=== PATIENT | male | born 1980 | race African-American/Black ===

== ENCOUNTER → 2016-04-10 | Outpatient (CLI) | payer MEDICARE, OTHER | END | disposition home or self-care (01) | LOC: LABWHC1 07:08 | PROVIDERS: ATTEND Nurse Practitioner Family | DX: Z51.81 Encounter for therapeutic drug level monitoring (principal); Z79.899 Other long term (current) drug therapy | CPT/HCPCS: 36415; 84146 ==

== ENCOUNTER → 2017-01-20 | Outpatient (CLI) | payer MEDICARE, OTHER ==
[2017-01-20 08:20] LABS: Basophils % (A) 1 %; CH 29.6; CHCM 33.4; Eosinophils # (A) 0.2 k/uL (0-0.7); Eosinophils % (A) 4 %; HCT 43.8 % (39.0-53.0); HDW 2.37; HGB 14.4 gm/dL (13.0-17.5); Luc # (Auto) 0.05; Luc % (Auto) 1; Lymphocytes # (A) 1.1 k/uL (1.0-4.8); Lymphocytes % (A) 20 %; MCH 29.3 pg (25.0-35.0); MCHC 32.9 g/dL (31.0-37.0); MCV 89.1 fL (80.0-100.0); Mean Platelet Volume 7.8; Monocytes # (A) 0.5 k/uL (0-1.0); Monocytes % (A) 9 %; Neutrophils # (A) 3.5 k/uL (1.3-7.7); Neutrophils % (A) 66 %; RBC 4.91 m/uL (4.30-5.90); RDW 13.2 % (11.5-15.5); WBC 5.4 k/uL (3.8-10.6); WBC (Perox) 5.01
[2017-01-20 08:32] LABS: ALT 44 U/L (21-72); AST 24 U/L (17-59); Alkaline Phosphatase 69 U/L (38-126); Anion Gap 9 mmol/L; Bilirubin, Delta 0.1 mg/dL (0.0-0.2); Blood Urea Nitrogen 17 mg/dL (9-20); Calcium 10.1 mg/dL (8.4-10.2); Carbon Dioxide 30 mmol/L (22-30); Chloride 105 mmol/L (98-107); Glucose 102 mg/dL (74-99); Non-African American GFR(MDRD) >60 (>60 ml/min/1.73 sqM); Potassium 4.2 mmol/L (3.5-5.1); Sodium 144 mmol/L (137-145); Total Bilirubin 0.7 mg/dL (0.2-1.3); Total Protein 7.2 g/dL (6.3-8.2)
== END | disposition home or self-care (01) ==
LOC: LABWHC1 07:54
PROVIDERS: ATTEND Nurse Practitioner Family
DX: Z51.81 Encounter for therapeutic drug level monitoring (principal); Z79.899 Other long term (current) drug therapy
CPT/HCPCS: 36415; 80048; 80076; 83036; 84146; 85025

== ENCOUNTER → 2017-07-21 | Outpatient (CLI) | payer MEDICARE, OTHER | END | disposition home or self-care (01) | LOC: LABWHC1 06:38 | PROVIDERS: ATTEND Nurse Practitioner Family | DX: Z51.81 Encounter for therapeutic drug level monitoring (principal); Z79.899 Other long term (current) drug therapy | CPT/HCPCS: 36415; 84146 ==

== ENCOUNTER → 2017-09-17 | Outpatient (CLI) | payer MEDICARE, OTHER | END | disposition home or self-care (01) | LOC: LABWHC1 07:55 | PROVIDERS: ATTEND Nurse Practitioner Family | DX: Z51.81 Encounter for therapeutic drug level monitoring (principal); Z79.899 Other long term (current) drug therapy | CPT/HCPCS: 36415; 84146 ==

== ENCOUNTER → 2017-12-02 | Outpatient (CLI) | payer MEDICARE, OTHER ==
[2017-12-02 07:38] LABS: Basophils % (A) 1 %; Eosinophils # (A) 0.3 k/uL (0-0.7); Eosinophils % (A) 5 %; HCT 43.8 % (39.0-53.0); HGB 14.9 gm/dL (13.0-17.5); Lymphocytes # (A) 1.4 k/uL (1.0-4.8); Lymphocytes % (A) 28 %; MCV 85.4 fL (80.0-100.0); Monocytes # (A) 0.4 k/uL (0-1.0); Monocytes % (A) 8 %; Neutrophils # (A) 2.9 k/uL (1.3-7.7); Neutrophils % (A) 57 %; Platelet Count 199 k/uL (150-450); RBC 5.12 m/uL (4.30-5.90); RDW 11.6 % (11.5-15.5); WBC 5.2 k/uL (3.8-10.6)
[2017-12-02 07:56] LABS: ALT 113 U/L (21-72); AST 48 U/L (17-59); Albumin 4.4 g/dL (3.5-5.0); Alkaline Phosphatase 76 U/L (38-126); Anion Gap 8 mmol/L; Bilirubin, Delta 0.3 mg/dL (0.0-0.2); Bilirubin,Unconjugated 0.9 mg/dL (0.0-1.1); Blood Urea Nitrogen 15 mg/dL (9-20); Calcium 9.9 mg/dL (8.4-10.2); Carbon Dioxide 30 mmol/L (22-30); Chloride 106 mmol/L (98-107); Glucose 80 mg/dL (74-99); Potassium 4.3 mmol/L (3.5-5.1); Sodium 144 mmol/L (137-145); Total Bilirubin 1.2 mg/dL (0.2-1.3); Total Protein 7.3 g/dL (6.3-8.2)
[2017-12-02 14:38] LABS: Hemoglobin A1C 4.5 % (4.0-6.0)
== END | disposition home or self-care (01) ==
LOC: LABWHC1 06:52
PROVIDERS: ATTEND Psychiatry & Neurology Psychiatry
DX: Z51.81 Encounter for therapeutic drug level monitoring (principal); Z79.899 Other long term (current) drug therapy
CPT/HCPCS: 36415; 80048; 80076; 83036; 84146; 85025

== ENCOUNTER → 2018-02-26 | Outpatient (CLI) | payer MEDICARE, OTHER | END | disposition home or self-care (01) | LOC: LABWHC1 11:11 | PROVIDERS: ATTEND Nurse Practitioner Family | DX: Z51.81 Encounter for therapeutic drug level monitoring (principal); Z79.899 Other long term (current) drug therapy | CPT/HCPCS: 36415; 84146 ==

== ENCOUNTER → 2018-03-22 | Outpatient (CLI) | payer MEDICARE, OTHER ==
--- NOTE | 2018-03-22 10:44 | XR ---
EXAMINATION TYPE: XR hand complete LT DATE OF EXAM: 03/22/2018 CLINICAL HISTORY: pain TECHNIQUE: Frontal, lateral and oblique images of the left hand are obtained. COMPARISON: None. FINDINGS: There is no acute fracture/dislocation evident. The joint spaces appear within normal limi ts. The overlying soft tissue appears unremarkable. IMPRESSION: There is no acute fracture or dislocation. ICD 10 NO FRACTURE, INITIAL EVALUATION
== END ==
LOC: RADXRMAIN 10:13
PROVIDERS: ATTEND Family Medicine
DX: M79.642 Pain in left hand (principal)

== ENCOUNTER → 2018-05-20 | Outpatient (CLI) | payer MEDICARE, OTHER ==
[2018-05-20 16:42] LABS: Albumin 4.9 g/dL (3.80-4.90); Albumin/Globulin Ratio 2.23 (1.60-3.17); Anion Gap 7.1 mmol/L (4.00-12.00); Calcium 10.2 mg/dL (8.7-10.3); Carbon Dioxide 29.9 mmol/L (21.6-31.8); Globulin 2.2 g/dL (1.6-3.3); Total Bilirubin 1.1 mg/dL (0.3-1.2); Total Protein 7.1 g/dL (6.2-8.2)
[2018-05-20 16:50] LABS: T4, Free (Free Thyroxine) 1.1 ng/dL (0.80-1.80)
== END | disposition home or self-care (01) ==
LOC: LABWHC1 08:57
PROVIDERS: ATTEND Family Medicine
DX: R63.4 Abnormal weight loss (principal)
CPT/HCPCS: 36415; 80053; 84439; 84443

== ENCOUNTER → 2018-06-01 | Outpatient (CLI) | payer MEDICARE, OTHER | END | disposition home or self-care (01) | LOC: LABWHC1 12:35 | PROVIDERS: ATTEND Physician Assistant | DX: Z51.81 Encounter for therapeutic drug level monitoring (principal); Z79.899 Other long term (current) drug therapy | CPT/HCPCS: 36415; 84146 ==

== ENCOUNTER → 2019-04-20 | Outpatient (CLI) | payer MEDICARE, OTHER ==
[2019-04-20 08:25] LABS: Basophils % (A) 0 %; Eosinophils # (A) 0.2 k/uL (0-0.7); Eosinophils % (A) 4 %; HCT 45.2 % (39.0-53.0); HGB 14.8 gm/dL (13.0-17.5); Lymphocytes # (A) 1.6 k/uL (1.0-4.8); Lymphocytes % (A) 27 %; MCH 28.3 pg (25.0-35.0); MCHC 32.7 g/dL (31.0-37.0); MCV 86.4 fL (80.0-100.0); Mean Platelet Volume 7.5; Monocytes # (A) 0.5 k/uL (0-1.0); Monocytes % (A) 8 %; Neutrophils # (A) 3.6 k/uL (1.3-7.7); Neutrophils % (A) 60 %; Platelet Count 184 k/uL (150-450); RBC 5.23 m/uL (4.30-5.90); RDW 11.6 % (11.5-15.5); WBC 6.1 k/uL (3.8-10.6)
[2019-04-20 12:03] LABS: Albumin 4.6 g/dL (3.80-4.90); Albumin/Globulin Ratio 2.42 (1.60-3.17); Bilirubin, Conjugated 0.5 mg/dL (0.20-0.40); Bilirubin,Unconjugated 0.7 mg/dL; Chol/HDL Ratio 2.83; Globulin 1.9 g/dL (1.6-3.3); Total Bilirubin 1.2 mg/dL (0.3-1.2); Total Protein 6.5 g/dL (6.2-8.2)
[2019-04-20 12:13] LABS: T4, Free (Free Thyroxine) 1.2 ng/dL (0.80-1.80)
[2019-04-20 13:08] LABS: Prolactin 64.2 ng/mL (2.1-17.7)
== END | disposition home or self-care (01) ==
LOC: LABWHC1 07:33
PROVIDERS: ATTEND Nurse Practitioner Family
DX: Z51.81 Encounter for therapeutic drug level monitoring (principal); Z79.899 Other long term (current) drug therapy
CPT/HCPCS: 36415; 80061; 80076; 82947; 84146; 84439; 84443; 85025

== ENCOUNTER → 2019-11-08 | Outpatient (CLI) | payer MEDICARE, OTHER ==
[2019-11-08 16:33] LABS: Chol/HDL Ratio 3.27; LDL Cholesterol,Calculated 85.6 mg/dL (0.0-131.0); VLDL Calculation 14.4 mg/dL (5.00-40.00)
[2019-11-08 18:22] LABS: Hemoglobin A1C 4.7 % (4.0-6.0)
== END | disposition home or self-care (01) ==
LOC: LABWHC1 08:01
PROVIDERS: ATTEND Nurse Practitioner Family
DX: Z51.81 Encounter for therapeutic drug level monitoring (principal); Z79.899 Other long term (current) drug therapy
CPT/HCPCS: 36415; 80061; 83036; 84146

== ENCOUNTER 2019-11-27 15:23 | Emergency (ER) | payer MEDICARE, OTHER ==
[2019-11-27 15:37] VITALS: BP 112/77; PULSE 90; RESP 18; TEMP 98.3
[2019-11-27] MEDS ORDERED: POLYMYXIN B-TRIMETHOPRIM SULF (10,000-1) OPHTH DROPS 10 ML BTL BOTH EYES STA (15:53)
--- NOTE | 2019-11-27 16:01 | ED ---
Eye Problem HPI - General Source: patient Mode of arrival: ambulatory Limitations: no limitations <Junior Rhodes - Last Filed: 11/27/19 16:03> <Kelsy Lopez - Last Filed: 11/28/19 14:36> - General Chief complaint: Eye Problems Stated complaint: poss pink eye Time Seen by Provider: 11/27/19 15:51 - History of Present Illness Initial comments: Patient is a 39-year-old male, nonverbal presenting with his caregiver to emergency department for a chief complaint of possible pinkeye. Caregiver states that noticed redness in his right eye along with some crusting specialist in the morning. She noticed patient continues to itch the eye. They say there is no one in the vicinity was diagnosed with pink eye. Caregiver denies any complaints of chills or fevers at home. She denies any swelling or erythema around the eye. (Junior Rhodes) - Related Data Previous Rx's Medication Instructions Recorded Polymyxin B-Trimeth Sulf Ophth 1 drops BOTH EYES Q4H #1 bottle 11/27/19 [Polytrim Opthalmic] Allergies Allergy/AdvReac Type Severity Reaction Status Date / Time No Known Allergies Allergy Verified 11/27/19 15:37 Review of Systems ROS Other: All systems not noted in ROS Statement are negative. <Junior Rhodes - Last Filed: 11/27/19 16:03> ROS Other: All systems not noted in ROS Statement are negative. <Kelsy Lopez - Last Filed: 11/28/19 14:36> ROS Statement: Those systems with pertinent positive or pertinent negative responses have been documented in the HPI. Past Medical History Additional Past Medical History / Comment(s): autism- non verbal, mental retardation History of Any Multi-Drug Resistant Organisms: None Reported Past Surgical History: Ear Surgery Past Psychological History: No Psychological Hx Reported Smoking Status: Never smoker Past Alcohol Use History: None Reported Past Drug Use History: None Reported <Junior Rhodes - Last Filed: 11/27/19 16:03> General Exam Limitations: no limitations General appearance: alert, in no apparent distress Head exam: Present: atraumatic, normocephalic, normal inspection Eye exam: Present: normal appearance, PERRL, EOMI, conjunctival injection (Right eye. Some yellow crusting noted) Pupils: Present: normal accommodation ENT exam: Present: normal exam, normal oropharynx, mucous membranes moist, TM's normal bilaterally, normal external ear exam Neck exam: Present: normal inspection, full ROM. Absent: tenderness Respiratory exam: Present: normal lung sounds bilaterally. Absent: respiratory distress, wheezes, rales Cardiovascular Exam: Present: regular rate, normal rhythm, normal heart sounds Extremities exam: Present: normal inspection, full ROM, normal capillary refill. Absent: tenderness Back exam: Present: normal inspection, full ROM. Absent: tenderness, CVA tenderness (R), CVA tenderness (L) Neurological exam: Present: alert, normal gait Psychiatric exam: Present: normal affect, normal mood Skin exam: Present: warm, dry, intact, normal color <Junior Rhodes - Last Filed: 11/27/19 16:03> Course <Junior Rhodes - Last Filed: 11/27/19 16:03> Vital Signs 11/27/19 15:32 Temperature 98.3 F Pulse Rate 90 Respiratory 18 Rate Blood Pressure 112/77 O2 Sat by Pulse 99 Oximetry - Reevaluation(s) Reevaluation #1: 11/27/19 16:05 Medical records reviewed (Junior Rhodes) Medical Decision Making <Junior Rhodes - Last Filed: 11/27/19 16:03> <Kelsy Lopez - Last Filed: 11/28/19 14:36> - Medical Decision Making Patient a 39-year-old male presenting to emergency Department with a chief complaint of possible pinkeye .physical examination, patient does appear to have conjunctivitis. Some crusting noted. Patient to be started on Polytrim. He does not wear contacts. Return parameters thoroughly discussed with caregiver who is understandable and agreeable. Case discussed with physician. (Junior Rhodes) I was available for consultation in the emergency department. The history and physical exam were done by the midlevel provider. I was consulted for this patients care. I reviewed the case with the midlevel provider and based on their presentation of the patient, I agree with the assessment, medical decision making and plan of care as documented. Chart was dictated using [employer] dictation software. Attempts were made to correct any dictation errors however some typographical errors may persist. Patient was seen during a national state of emergency due to the Covid-19 pandemic. (Kelsy Lopez) Disposition Is patient prescribed a controlled substance at d/c from ED?: No Time of Disposition: 16:01 <Junior Rhodes - Last Filed: 11/27/19 16:03> <Kelsy Lopez - Last Filed: 11/28/19 14:36> Clinical Impression: Conjunctivitis, right eye Disposition: HOME SELF-CARE Condition: Stable Instructions (If sedation given, give patient instructions): Conjunctivitis (ED) Additional Instructions: Take prescribed medication as directed. Follow up with the primary care physician. Return to emergency department if symptoms worsen. Prescriptions: Polymyxin B-Trimeth Sulf Ophth [Polytrim Opthalmic] 1 drops BOTH EYES Q4H #1 bottle Referrals: Rony Kendall MD [Primary Care Provider] - 1-2 days
== END 2019-11-27 16:12 | disposition home or self-care (01) ==
LOC: EEVIPCON 15:23 → EC 15:23
DX: H10.9 Unspecified conjunctivitis (principal)
CPT/HCPCS: 99282

== ENCOUNTER → 2020-07-25 | Outpatient (CLI) | payer MEDICARE, OTHER | END | disposition home or self-care (01) | LOC: LABWHC1 12:37 | PROVIDERS: ATTEND Nurse Practitioner Family | DX: Z79.899 Other long term (current) drug therapy (principal) | CPT/HCPCS: 36415; 84146 ==

== ENCOUNTER 2021-04-11 21:41 | Emergency (ER) | payer MEDICARE, OTHER ==
[2021-04-11 23:54] LABS: Basophils % (A) 1 %; Eosinophils # (A) 0.3 k/uL (0-0.7); Eosinophils % (A) 4 %; HCT 38.9 % (39.0-53.0); HGB 13.7 gm/dL (13.0-17.5); Lymphocytes # (A) 1.8 k/uL (1.0-4.8); Lymphocytes % (A) 25 %; MCH 29.9 pg (25.0-35.0); MCHC 35.2 g/dL (31.0-37.0); MCV 84.9 fL (80.0-100.0); Mean Platelet Volume 7.3; Monocytes # (A) 0.5 k/uL (0-1.0); Monocytes % (A) 8 %; Neutrophils # (A) 4.4 k/uL (1.3-7.7); Neutrophils % (A) 61 %; Platelet Count 244 k/uL (150-450); RBC 4.58 m/uL (4.30-5.90); RDW 11.8 % (11.5-15.5); WBC 7.1 k/uL (3.8-10.6)
[2021-04-12 00:06] LABS: African American GFR (CKD) >90 (>60 ml/min/1.73 sqM); Alcohol <10 mg/dL; Anion Gap 8 mmol/L; Blood Urea Nitrogen 13 mg/dL (9-20); Calcium 9.6 mg/dL (8.4-10.2); Carbon Dioxide 21 mmol/L (22-30); Chloride 109 mmol/L (98-107); Glucose 109 mg/dL (74-99); Non-African American GFR(CKD) >90 (>60 ml/min/1.73 sqM); Sodium 138 mmol/L (137-145)
[2021-04-12 01:36] LABS: Appearance,Urine Clear (Clear); Bilirubin,Urine Negative (Negative); Blood,Urine Negative (Negative); Color,Urine Light Yellow; Glucose,Urine (UA) Negative (Negative); Ketones,Urine Negative (Negative); Leukocyte Esterase,Urine Negative (Negative); Nitrite,Urine Negative (Negative); Protein,Urine Negative (Negative); Specific Gravity,Urine 1.011 (1.001-1.035); Urobilinogen,Urine <2.0 mg/dL (<2.0)
[2021-04-12 01:47] LABS: Amphetamine Screen,Urine Not Detected (NotDetected); Barbiturate Screen,Urine Not Detected (NotDetected); Benzodiazepines Screen,Urine Not Detected (NotDetected); Cocaine Screen,Urine Not Detected (NotDetected); Methadone Screen, Urine Not Detected (NotDetected); Opiate Screen,Urine Not Detected (NotDetected); Oxycodone Screen, Urine Not Detected (NotDetected); Phencyclidine Screen,Urine Not Detected (NotDetected); Tricyclic Antidepressant,Urine Not Detected (NotDetected); Urn Cannabinoid Scrn Not Detected (NotDetected)
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
[2021-04-12 04:31] VITALS: BP 127/77; PULSE 77; RESP 20; TEMP 97.7
== END 2021-04-12 04:31 | disposition home or self-care (01) ==
LOC: EC 21:41
DX: R45.6 Violent behavior (principal); F84.0 Autistic disorder
CPT/HCPCS: 99284; 36415; 80048; 85025; 81003; 80306; G0480; 80320

== ENCOUNTER 2021-05-02 16:47 | Emergency (ER) | payer MEDICARE, OTHER ==
[2021-05-02 17:19] VITALS: RESP 16; TEMP 98.4
--- NOTE | 2021-05-02 19:31 | ED ---
General Adult HPI - General Source: patient, RN notes reviewed, old records reviewed Mode of arrival: ambulatory Limitations: no limitations <Sherman Thibodeaux - Last Filed: 05/02/21 20:44> <Adalberto Galloway - Last Filed: 05/03/21 10:05> <Janel Valentin - Last Filed: 05/03/21 16:59> - General Chief complaint: Psychiatric Symptoms Stated complaint: Mental health Time Seen by Provider: 05/02/21 17:37 - History of Present Illness Initial comments: 41-year-old male history of autism resulting for evaluation of aggression and request for psychiatric evaluation. Patient is nonverbal and unable to contribute to the history. He takes clonazepam once daily to this about 2 hours prior to arrival today. He is calm and cooperative time my evaluation. He is accompanied by his caregiver and his mother. (Sherman Thibodeaux) - Related Data Home Medications Medication Instructions Recorded Confirmed Asenapine Maleate [Saphris] 2.5 mg SUBLINGUAL DAILY PRN 05/02/21 05/02/21 Cefuroxime Axetil [Ceftin] 500 mg PO BID@0800,199905/02/21 05/02/21 Cetirizine HCl 10 mg PO DAILY@0800 05/02/21 05/02/21 Clindamycin 1% Lotion 1 applic TOPICAL BID PRN 05/02/21 05/02/21 Fluocinonide/Emollient Base 1 applic TOPICAL BID PRN 05/02/21 05/02/21 [Fluocinonide-E 0.05% Cream] Fluticasone Nasal Cade [Flonase 1 spray EA NOSTRIL BID@0800,199905/02/21 05/02/21 Nasal Cade] Mirtazapine [Remeron] 30 mg PO HS@199905/02/21 05/02/21 Vitamin B Complex/Melly C 1 tab PO DAILY@0800 05/02/21 05/02/21 cloNIDine HCL 0.3 mg PO HS@199905/02/21 05/02/21 clonazePAM [KlonoPIN] 1 mg PO DAILY@1600 05/02/21 05/02/21 risperiDONE [RisperDAL] 4 mg PO BID@0800,199905/02/21 05/02/21 Allergies Allergy/AdvReac Type Severity Reaction Status Date / Time No Known Allergies Allergy Verified 05/02/21 19:55 Review of Systems ROS Other: All systems not noted in ROS Statement are negative. <Sherman Thibodeaux - Last Filed: 05/02/21 20:44> ROS Other: All systems not noted in ROS Statement are negative. <Adalberto Galloway - Last Filed: 05/03/21 10:05> ROS Other: All systems not noted in ROS Statement are negative. <Janel Valentin - Last Filed: 05/03/21 16:59> ROS Statement: Those systems with pertinent positive or pertinent negative responses have been documented in the HPI. Past Medical History Additional Past Medical History / Comment(s): autism- non verbal, mental retardation History of Any Multi-Drug Resistant Organisms: None Reported Past Surgical History: Ear Surgery Past Psychological History: No Psychological Hx Reported Smoking Status: Never smoker Past Alcohol Use History: None Reported Past Drug Use History: None Reported <Sherman Thibodeaux - Last Filed: 05/02/21 20:44> General Exam Limitations: no limitations General appearance: alert, in no apparent distress Head exam: Present: atraumatic, normocephalic Eye exam: Present: normal appearance, PERRL ENT exam: Present: normal exam Neck exam: Present: normal inspection. Absent: tenderness, meningismus Respiratory exam: Present: normal lung sounds bilaterally. Absent: respiratory distress, wheezes Cardiovascular Exam: Present: regular rate, normal rhythm GI/Abdominal exam: Present: soft. Absent: distended, tenderness Extremities exam: Present: normal inspection, normal capillary refill Neurological exam: Present: alert. Absent: motor sensory deficit Psychiatric exam: Present: agitated Skin exam: Present: warm, dry, intact. Absent: cyanosis, diaphoretic <Sherman Thibodeaux - Last Filed: 05/02/21 20:44> Course <Sherman Thibodeaux - Last Filed: 05/02/21 20:44> Vital Signs 05/02/21 05/03/21 17:15 05:14 Temperature 98.4 F Pulse Rate 98 87 Respiratory 16 16 Rate Blood Pressure 125/85 140/87 O2 Sat by Pulse 96 98 Oximetry - Reevaluation(s) Reevaluation #1: 05/02/21 2100 Patient care signed out to Dr. Kolb at shift change. Awaiting EPS evaluation and disposition. (Sherman Thibodeaux) Medical Decision Making - Lab Data Result diagrams: 05/03/21 00:17 05/03/21 00:17 <Adalberto Galloway - Last Filed: 05/03/21 10:05> - Lab Data Result diagrams: 05/03/21 00:17 05/03/21 00:17 <Janel Valentin - Last Filed: 05/03/21 16:59> - Medical Decision Making Patient was seen by EM who coordinated care with [facility] ([facility]) and patient's alf, they added Depakot ER to the patient's medication regimen and determined that the patient was stable for discharged back to alf. Patient's mother was notified and agreeable with medication change and plan for discharge. (Janel Valentin) - Lab Data Lab Results 05/02/21 05/03/21 05/03/21 Range/Units 18:21 00:17 00:17 WBC 6.5 (3.8-10.6) k/uL RBC 4.94 (4.30-5.90) m/uL Hgb 14.6 (13.0-17.5) gm/dL Hct 42.5 (39.0-53.0) % MCV 86.1 (80.0-100.0) fL MCH 29.6 (25.0-35.0) pg MCHC 34.3 (31.0-37.0) g/dL RDW 12.2 (11.5-15.5) % Plt Count 196 (150-450) k/uL MPV 7.3 Neutrophils % 54 % Lymphocytes % 31 % Monocytes % 8 % Eosinophils % 4 % Basophils % 1 % Neutrophils # 3.5 (1.3-7.7) k/uL Lymphocytes # 2.0 (1.0-4.8) k/uL Monocytes # 0.5 (0-1.0) k/uL Eosinophils # 0.2 (0-0.7) k/uL Basophils # 0.1 (0-0.2) k/uL Sodium 139 (137-145) mmol/L Potassium 3.7 (3.5-5.1) mmol/L Chloride 107 (98-107) mmol/L Carbon Dioxide 21 L (22-30) mmol/L Anion Gap 11 mmol/L BUN 15 (9-20) mg/dL Creatinine 0.89 (0.66-1.25) mg/dL Est GFR (CKD-EPI)AfAm >90 (>60 ml/min/1.73 sqM) Est GFR (CKD-EPI)NonAf >90 (>60 ml/min/1.73 sqM) Glucose 131 H (74-99) mg/dL Calcium 9.5 (8.4-10.2) mg/dL Total Bilirubin 0.7 (0.2-1.3) mg/dL AST 38 (17-59) U/L ALT 56 H (4-49) U/L Alkaline Phosphatase 97 (38-126) U/L Total Protein 7.6 (6.3-8.2) g/dL Albumin 4.6 (3.5-5.0) g/dL Serum Alcohol <10 mg/dL Coronavirus (PCR) (Not Detectd) 05/03/21 Range/Units 06:04 WBC (3.8-10.6) k/uL RBC (4.30-5.90) m/uL Hgb (13.0-17.5) gm/dL Hct (39.0-53.0) % MCV (80.0-100.0) fL MCH (25.0-35.0) pg MCHC (31.0-37.0) g/dL RDW (11.5-15.5) % Plt Count (150-450) k/uL MPV Neutrophils % % Lymphocytes % % Monocytes % % Eosinophils % % Basophils % % Neutrophils # (1.3-7.7) k/uL Lymphocytes # (1.0-4.8) k/uL Monocytes # (0-1.0) k/uL Eosinophils # (0-0.7) k/uL Basophils # (0-0.2) k/uL Sodium (137-145) mmol/L Potassium (3.5-5.1) mmol/L Chloride (98-107) mmol/L Carbon Dioxide (22-30) mmol/L Anion Gap mmol/L BUN (9-20) mg/dL Creatinine (0.66-1.25) mg/dL Est GFR (CKD-EPI)AfAm (>60 ml/min/1.73 sqM) Est GFR (CKD-EPI)NonAf (>60 ml/min/1.73 sqM) Glucose (74-99) mg/dL Calcium (8.4-10.2) mg/dL Total Bilirubin (0.2-1.3) mg/dL AST (17-59) U/L ALT (4-49) U/L Alkaline Phosphatase (38-126) U/L Total Protein (6.3-8.2) g/dL Albumin (3.5-5.0) g/dL Serum Alcohol mg/dL Coronavirus (PCR) Not Detected (Not Detectd) Disposition <Sherman Thibodeaux - Last Filed: 05/02/21 20:44> <Adalberto Galloway - Last Filed: 05/03/21 10:05> Is patient prescribed a controlled substance at d/c from ED?: No <Janel Valentin - Last Filed: 05/03/21 16:59> Clinical Impression: Encounter for psychiatric assessment Disposition: HOME SELF-CARE Condition: Stable Referrals: Rony Kendall MD [Primary Care Provider] - 1-2 days
[2021-05-02] MEDS ORDERED: clonazePAM 0.5 MG TAB PO PRN (22:44)
[2021-05-02] MEDS ORDERED: MIRTAZAPINE 15 MG TAB PO SCH (23:32)
[2021-05-02] MEDS ORDERED: cloNIDine HCL 0.1 MG TAB PO SCH (23:32)
[2021-05-02] MEDS: risperiDONE 1 MG TAB PO SCH (23:57)
[2021-05-03 00:30] LABS: Basophils # (A) 0.1 k/uL (0-0.2); Basophils % (A) 1 %; Eosinophils # (A) 0.2 k/uL (0-0.7); Eosinophils % (A) 4 %; HCT 42.5 % (39.0-53.0); HGB 14.6 gm/dL (13.0-17.5); Lymphocytes % (A) 31 %; MCH 29.6 pg (25.0-35.0); MCHC 34.3 g/dL (31.0-37.0); MCV 86.1 fL (80.0-100.0); Mean Platelet Volume 7.3; Monocytes # (A) 0.5 k/uL (0-1.0); Monocytes % (A) 8 %; Neutrophils # (A) 3.5 k/uL (1.3-7.7); Neutrophils % (A) 54 %; Platelet Count 196 k/uL (150-450); RBC 4.94 m/uL (4.30-5.90); RDW 12.2 % (11.5-15.5); WBC 6.5 k/uL (3.8-10.6)
[2021-05-03] MEDS ORDERED: LORazepam 1 MG TAB PO STA (00:32)
[2021-05-03 00:49] LABS: ALT 56 U/L (4-49); AST 38 U/L (17-59); African American GFR (CKD) >90 (>60 ml/min/1.73 sqM); Albumin 4.6 g/dL (3.5-5.0); Alkaline Phosphatase 97 U/L (38-126); Anion Gap 11 mmol/L; Blood Urea Nitrogen 15 mg/dL (9-20); Calcium 9.5 mg/dL (8.4-10.2); Carbon Dioxide 21 mmol/L (22-30); Chloride 107 mmol/L (98-107); Glucose 131 mg/dL (74-99); Non-African American GFR(CKD) >90 (>60 ml/min/1.73 sqM); Potassium 3.7 mmol/L (3.5-5.1); Sodium 139 mmol/L (137-145); Total Bilirubin 0.7 mg/dL (0.2-1.3); Total Protein 7.6 g/dL (6.3-8.2)
[2021-05-03] MEDS ORDERED: ZIPRASIDONE 20 MG CAP PO STA (04:53)
[2021-05-03 05:15] VITALS: BP 140/87; PULSE 87
[2021-05-03] MEDS ORDERED: RISPERIDONE 4 MG PO SCH (08:00)
[2021-05-03] MEDS: risperiDONE 1 MG TAB PO SCH (08:34)
[2021-05-03] MEDS ORDERED: ASENAPINE 5 MG TAB SUBLINGUAL SCH (09:00)
[2021-05-03] MEDS ORDERED: clonazePAM 1 MG TAB PO SCH (09:00)
[2021-05-03] MEDS ORDERED: ASENAPINE 5 MG TAB SUBLINGUAL PRN (13:48)
[2021-05-03] MEDS ORDERED: clonazePAM 1 MG TAB PO PRN (13:48)
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
[2021-05-03] MEDS ORDERED: MIRTAZAPINE 30 MG PO SCH (20:00)
[2021-05-03] MEDS ORDERED: cloNIDine HCL 0.1 MG TAB PO SCH (20:00)
[2021-05-03] MEDS ORDERED: DIVALPROEX ER 500 MG TAB.ER.24H PO SCH (21:00)
== END 2021-05-03 19:35 | disposition home or self-care (01) ==
LOC: EC 16:47
DX: Z13.39 Encounter for screening examination for other mental health and behavioral disorders (principal); Z20.822 Contact with and (suspected) exposure to COVID-19
CPT/HCPCS: 36415; 80053; 85025; 87635; 99284; G0480; 80320

== ENCOUNTER 2021-10-30 07:07 | Emergency (ER) | payer MEDICARE, OTHER ==
[2021-10-30 07:30] VITALS: BP 133/81; PULSE 100; RESP 20; TEMP 98.6
--- NOTE | 2021-10-30 07:42 | ED ---
Psych HPI - General Chief Complaint: Psychiatric Symptoms Stated Complaint: Mental Health Time Seen by Provider: 10/30/21 07:10 Source: patient, police, RN notes reviewed, old records reviewed Mode of arrival: ambulatory Limitations: language barrier - History of Present Illness Initial Comments: This a 41-year-old male brought to emergency department by police from [facility] home for psychiatric evaluation. Patient is autistic, nonverbal and reportedly had some aggression towards staff. Patient is petition brought in by police information is very limited as patient is nonverbal prior records were reviewed did show patient has been in another by psychiatric services in the past. No reports of self harming no reports of any physical complaints. - Related Data Home Medications Medication Instructions Recorded Confirmed Asenapine Maleate [Saphris] 2.5 mg SUBLINGUAL DAILY 05/02/21 10/30/21 Cetirizine HCl 10 mg PO DAILY@0800 05/02/21 10/30/21 Clindamycin 1% Lotion 1 applic TOPICAL BID PRN 05/02/21 10/30/21 Fluocinonide/Emollient Base 1 applic TOPICAL BID PRN 05/02/21 10/30/21 [Fluocinonide-E 0.05% Cream] Fluticasone Nasal Raymond [Flonase 1 spray EA NOSTRIL BID 05/02/21 10/30/21 Nasal Raymond] Mirtazapine [Remeron] 30 mg PO HS 05/02/21 10/30/21 cefUROXime axetiL [Ceftin] 500 mg PO BID 05/02/21 10/30/21 Asenapine Maleate [Saphris] 2.5 mg SUBLINGUAL BID PRN 10/30/21 10/30/21 Asenapine [Saphris] 5 mg SUBLINGUAL BID 10/30/21 10/30/21 Vitamin B Complex 1 cap PO DAILY 10/30/21 10/30/21 cloNIDine HCL [Kapvay] 0.3 mg PO HS 10/30/21 10/30/21 risperiDONE [RisperDAL] 3 mg PO BID 10/30/21 10/30/21 Allergies Allergy/AdvReac Type Severity Reaction Status Date / Time No Known Allergies Allergy Verified 10/30/21 08:39 Review of Systems ROS Statement: Those systems with pertinent positive or pertinent negative responses have been documented in the HPI. ROS Other: All systems not noted in ROS Statement are negative. Past Medical History Additional Past Medical History / Comment(s): autism- non verbal, mental retardation History of Any Multi-Drug Resistant Organisms: None Reported Past Surgical History: Ear Surgery Past Psychological History: No Psychological Hx Reported Smoking Status: Never smoker Past Alcohol Use History: None Reported Past Drug Use History: None Reported General Exam Limitations: language barrier General appearance: alert, in no apparent distress Head exam: Present: atraumatic, normocephalic, normal inspection Eye exam: Present: normal appearance, PERRL, EOMI. Absent: scleral icterus, conjunctival injection, periorbital swelling Respiratory exam: Present: normal lung sounds bilaterally. Absent: respiratory distress, wheezes, rales, rhonchi, stridor Cardiovascular Exam: Present: regular rate, normal rhythm, normal heart sounds. Absent: systolic murmur, diastolic murmur, rubs, gallop, clicks Neurological exam: Present: alert Skin exam: Present: warm, dry, intact, normal color. Absent: rash Course Vital Signs 10/30/21 07:27 Temperature 98.6 F Pulse Rate 100 Respiratory 20 Rate Blood Pressure 133/81 O2 Sat by Pulse 98 Oximetry Medical Decision Making - Medical Decision Making 41-year-old male presented for psychiatric evaluation. Patient was EPS case psychiatrist recommends patient be discharged patient's been: Cooperative. prison was contacted by [facility]. Return parameters were discussed. Disposition Clinical Impression: Autism, Aggressive outburst Disposition: HOME SELF-CARE Condition: Stable Additional Instructions: Please return to the Emergency Department if symptoms worsen or any other concerns. Is patient prescribed a controlled substance at d/c from ED?: No Referrals: None,Stated [Primary Care Provider] - 1-2 days Time of Disposition: 12:45
== END 2021-10-30 16:54 | disposition home or self-care (01) ==
LOC: EC 07:07
DX: F84.0 Autistic disorder (principal); R45.6 Violent behavior
CPT/HCPCS: 82075; 99283

== ENCOUNTER 2023-03-14 10:15 | Inpatient (IN) | payer MEDICARE, OTHER ==
[2023-03-14] MEDS ORDERED: SODIUM CHLORIDE 0.9% 1,000 ML IV STA (10:25)
[2023-03-14] MEDS ORDERED: IBUPROFEN 600 MG TAB PO STA (10:28)
--- NOTE | 2023-03-14 11:50 | XR ---
EXAMINATION TYPE: XR chest 2V DATE OF EXAM: 03/14/2023 COMPARISON: 04/09/2022 INDICATION: Cough, pain TECHNIQUE: Frontal and lateral views of the chest are obtained. FINDINGS: The heart size is normal. The pulmonary vasculature is normal. Some minimal increased lung markings are at the left base. Correlate for subsegmental atelectasis. De veloping pneumonia could be considered. IMPRESSION: 1. Mild left lower lobe infiltrate. Correlate for atelectasis or developing pneumonia
[2023-03-14 11:57] LABS: ALT 39 U/L (4-49); AST 39 U/L (17-59); African American GFR (CKD) >90 (>60 ml/min/1.73 sqM); Albumin 4.3 g/dL (3.5-5.0); Alkaline Phosphatase 80 U/L (38-126); Anion Gap 14 mmol/L; Blood Urea Nitrogen 23 mg/dL (9-20); Calcium 9.1 mg/dL (8.4-10.2); Carbon Dioxide 29 mmol/L (22-30); Chloride 99 mmol/L (98-107); Glucose 106 mg/dL (74-99); Non-African American GFR(CKD) 79 (>60 ml/min/1.73 sqM); Sodium 142 mmol/L (137-145); Total Bilirubin 0.8 mg/dL (0.2-1.3); Total Protein 7.5 g/dL (6.3-8.2)
[2023-03-14 11:58] LABS: HCT 42.9 % (39.0-53.0); HGB 14.9 gm/dL (13.0-17.5); MCH 30.3 pg (25.0-35.0); MCHC 34.8 g/dL (31.0-37.0); MCV 87.1 fL (80.0-100.0); Mean Platelet Volume 8.1; Platelet Count 141 k/uL (150-450); RBC 4.92 m/uL (4.30-5.90); RDW 11.9 % (11.5-15.5)
[2023-03-14 12:57] LABS: Band Neutrophils % 11 %; Lymphocytes # (M) 0.64 k/uL (1.0-4.8); Monocytes # (M) 0.48 k/uL (0-1.0); Neutrophils % (M) 75 %; Nucleated Red Blood Cells 0 /100 WBC (0-0); Total Cells Counted 100
[2023-03-14 12:58] LABS: RBC Morphology Normal
[2023-03-14] MEDS ORDERED: IPRATROPIUM-ALBUTEROL 3 ML NEB INHALATION PRN (13:02)
[2023-03-14] MEDS ORDERED: AZITHROMYCIN 500 MG in SODIUM CHLORIDE 0.9% 250 ML IVPB STA (13:02)
[2023-03-14] MEDS ORDERED: PNEUMONIA PROTOCOL UTILIZED 1 EACH MISC PO PRN (13:02)
--- NOTE | 2023-03-14 13:20 | ED ---
Fever HPI - General Chief Complaint: Fever Stated Complaint: FEVER Time Seen by Provider: 03/14/23 10:20 Source: EMS Mode of arrival: EMS Limitations: altered mental status - History of Present Illness Initial Comments: 43-year-old male with past medical history of autism, mostly nonverbal who presents to the emergency department with his svp group director. She states that the patient has been sick for the past 3 days. They have been in touch with her primary care doctor who placed him on Levaquin last night. He has not been seen in person. She reports that he has had a fever, nonproductive cough. He has had a decreased appetite and increased weakness. She states that he has not been urinating well and had no output yesterday. The patient has no underlying history of asthma or COPD. Oxygenation at home has been 88%. Denies any sick contacts. He was given Tylenol at 9:30 this morning. No other alleviating, precipitating or modifying factors - Related Data Home Medications Medication Instructions Recorded Confirmed Cetirizine HCl 10 mg PO DAILY@0800 05/02/21 03/14/23 Clindamycin 1% Lotion 1 applic TOPICAL BID PRN 05/02/21 03/14/23 Fluocinonide/Emollient Base 1 applic TOPICAL BID PRN 05/02/21 03/14/23 [Fluocinonide-E 0.05% Cream] Fluticasone Nasal [place] [Flonase 1 spray EA NOSTRIL BID@0800,209905/02/21 03/14/23 Nasal [place]] Dimethic/Zinc Ox/Vits A,D/Aloe [A 1 applic TOPICAL BID@0800,209903/14/23 03/14/23 and D Diaper Rash Cream] Divalproex ER [Depakote ER] 1,000 mg PO HS@209903/14/23 03/14/23 Famotidine 40 mg PO BID@0800,209903/14/23 03/14/23 LORazepam 2 mg PO HS@209903/14/23 03/14/23 Vitamin B Complex + Vitamin C 1 tab PO DAILY@0800 03/14/23 03/14/23 cloZAPine [Clozaril] 400 mg PO DAILY@1600 03/14/23 03/14/23 Previous Rx's Medication Instructions Recorded Oseltamivir [Tamiflu] 75 mg PO Q12HR 3 Days #6 cap 03/18/23 cefUROXime axetiL [Ceftin] 500 mg PO BID@0800,2100 3 Days #6 03/18/23 tab Allergies Allergy/AdvReac Type Severity Reaction Status Date / Time No Known Allergies Allergy Verified 03/14/23 14:01 Review of Systems ROS Statement: Those systems with pertinent positive or pertinent negative responses have been documented in the HPI. ROS Other: All systems not noted in ROS Statement are negative. Past Medical History Additional Past Medical History / Comment(s): autism- non verbal, mental retardation History of Any Multi-Drug Resistant Organisms: None Reported Past Surgical History: Ear Surgery Past Psychological History: No Psychological Hx Reported Smoking Status: Never smoker Past Alcohol Use History: None Reported Past Drug Use History: None Reported General Exam Limitations: altered mental status General appearance: alert, in no apparent distress Head exam: Present: atraumatic, normocephalic, normal inspection Eye exam: Present: normal appearance, PERRL, EOMI. Absent: scleral icterus, conjunctival injection, periorbital swelling ENT exam: Present: normal exam, mucous membranes moist Neck exam: Present: normal inspection. Absent: tenderness, meningismus, lymphadenopathy Respiratory exam: Present: wheezes, rales (rll). Absent: respiratory distress, rhonchi, stridor Cardiovascular Exam: Present: normal rhythm, tachycardia, normal heart sounds. Absent: systolic murmur, diastolic murmur, rubs, gallop, clicks GI/Abdominal exam: Present: soft, normal bowel sounds. Absent: distended, tenderness, guarding, rebound, rigid Extremities exam: Present: normal inspection, full ROM, normal capillary refill. Absent: tenderness, pedal edema, joint swelling, calf tenderness Back exam: Present: normal inspection Neurological exam: Present: alert, altered, CN II-XII intact Psychiatric exam: Present: normal affect, normal mood Skin exam: Present: warm, dry, intact, normal color. Absent: rash Course Vital Signs 03/14/23 03/14/23 03/14/23 10:19 11:29 13:01 Temperature 100.9 F H 99.7 F H Pulse Rate 121 H 117 H Respiratory 18 14 Rate Blood Pressure 134/90 119/76 O2 Sat by Pulse 92 L 89 L 91 L Oximetry 03/14/23 03/14/23 03/14/23 14:22 14:30 19:29 Temperature Pulse Rate 115 H 117 H 108 H Respiratory 16 Rate Blood Pressure 124/83 O2 Sat by Pulse 100 Oximetry 03/14/23 03/14/23 03/14/23 20:39 20:50 21:58 Temperature 99.0 F Pulse Rate 110 H 112 H 117 H Respiratory 18 Rate Blood Pressure 133/96 O2 Sat by Pulse 96 Oximetry 03/15/23 03/15/23 03/15/23 00:00 02:25 03:40 Temperature 100.5 F H 98.5 F Pulse Rate 109 H 108 H 101 H Respiratory 18 16 18 Rate Blood Pressure 137/84 129/90 132/92 O2 Sat by Pulse 96 95 96 Oximetry 03/15/23 03/15/23 03/15/23 05:56 08:45 08:59 Temperature 100.7 F H 99.4 F Pulse Rate 104 H 105 H 102 H Respiratory 16 18 Rate Blood Pressure 120/79 120/96 O2 Sat by Pulse 96 96 97 Oximetry 03/15/23 03/15/23 03/15/23 09:06 11:00 12:13 Temperature Pulse Rate 102 H 102 H 102 H Respiratory 18 Rate Blood Pressure 134/90 O2 Sat by Pulse 98 Oximetry 03/15/23 03/15/23 03/15/23 12:20 13:00 16:46 Temperature Pulse Rate 102 H 108 H 101 H Respiratory 18 Rate Blood Pressure 121/70 O2 Sat by Pulse 96 Oximetry 03/15/23 03/15/23 03/15/23 17:00 17:01 19:00 Temperature 100.2 F H Pulse Rate 107 H 102 H 107 H Respiratory 18 18 Rate Blood Pressure 124/82 118/87 O2 Sat by Pulse 98 95 Oximetry 03/15/23 03/15/23 03/15/23 19:55 20:00 21:05 Temperature 99.8 F H Pulse Rate 107 H 105 H Respiratory 23 Rate Blood Pressure 118/87 O2 Sat by Pulse Oximetry 03/15/23 03/16/23 03/16/23 21:14 00:00 01:14 Temperature Pulse Rate 108 H 103 H Respiratory 18 18 Rate Blood Pressure 105/69 O2 Sat by Pulse 98 Oximetry 03/16/23 03/16/23 03/16/23 01:33 03:00 05:00 Temperature Pulse Rate 98 103 H 101 H Respiratory 15 18 16 Rate Blood Pressure 101/72 100/65 99/62 O2 Sat by Pulse 97 97 Oximetry Medical Decision Making - Medical Decision Making Was pt. sent in by a medical professional or institution ([facility]STY Hoskins, ARMATURE REWINDER, urgent care, hospital, or care home...) When possible be specific @ -shelter Did you speak to anyone other than the patient for history (EMS, parent, family, police, friend...)? What history was obtained from this source @ -svp group director Did you review nursing and triage notes (agree or disagree)? Why? @ -I reviewed and agree with nursing and triage notes Were old charts reviewed (outside hosp., previous admission, EMS record, old EKG, old radiological studies, urgent care reports/EKG's, care home records)? Report findings @ -No old charts were reviewed Differential Diagnosis (chest pain, altered mental status, abdominal pain women, abdominal pain men, vaginal bleeding, weakness, fever, dyspnea, syncope, headache, dizziness, GI bleed, back pain, seizure, CVA, palpatations, mental health, musculoskeletal)? @ -Differential Dyspnea: Coronary syndrome, arrhythmia, tamponade, asthma, COPD, pulmonary embolism, pneumonia, pneumothorax, pulmonary effusion, anaphylaxis, diabetic ketoacidosis, flailed chest, pulmonary contusion, diaphragmatic rupture, anemia, neuromuscular, this is not meant to be an all-inclusive list. EKG interpreted by me (3pts min.). @ -Yes and demonstrates sinus tachycardia with a rate of 120. WI interval 120. QRS 96. QTC of 372. No acute ST segment elevations or depressions X-rays interpreted by me (1pt min.). @ -yes, demonstrates pneumonia CT interpreted by me (1pt min.). @ -None done U/S interpreted by me (1pt. min.). @ -None done What testing was considered but not performed or refused? (CT, X-rays, U/S, labs)? Why? @ -None What meds were considered but not given or refused? Why? @ -None Did you discuss the management of the patient with other professionals (professionals i.e. CHRISTY Hoskins, ARMATURE REWINDER, lab, RT, psych nurse, social work administrator, machine bobbin winder, teacher, sanitation officer, sample case porter)? Give summary @ -DR. schultz for admission Was smoking cessation discussed for >3mins.? @ -No Was critical care preformed (if so, how long)? @ -No Were there social determinants of health that impacted care today? How? (Homelessness, low income, unemployed, alcoholism, drug addiction, transportation, low edu. Level, literacy, decrease access to med. care, fci, rehab)? @ -lives in shelter Was there de-escalation of care discussed even if they declined (Discuss DNR or withdrawal of care, Hospice)? DNR status @ -No What co-morbidities impacted this encounter? (DM, HTN, Smoking, COPD, CAD, Cancer, CVA, ARF, Chemo, Hep., AIDS, mental health diagnosis, sleep apnea, morbid obesity)? @ -autism Was patient admitted / discharged? Hospital course, mention meds given and route, prescriptions, significant lab abnormalities, going to OR and other pertinent info. @Upon arrival patient was placed into room 3. A thorough history and physical exam was performed. Patient is maintaining oxygen saturation saturations of 88- 91% without oxygen. IV was established and laboratory studies were conducted. Patient is positive for influenza. Chest x-ray demonstrates a developing pneumonia. Due to his hypoxia, tachycardia with influenza and pneumonia I did recommend admission. Mother was agreeable to this who is his guardian. I spoke with Dr. schultz for admission. Patient is started on Rocephin, azithromycin and Tamiflu Undiagnosed new problem with uncertain prognosis? @ -yes Drug Therapy requiring intensive monitoring for toxicity (Heparin, Nitro, Insulin, Cardizem)? @ -No Were any procedures done? @ -No Diagnosis/symptom? @ -acute tachycardia, acute hypoxic resp failure, influenza a, pneumonia Acute, or Chronic, or Acute on Chronic? @ -acute Uncomplicated (without systemic symptoms) or Complicated (systemic symptoms)? @ -complicated Side effects of treatment? @ -No Exacerbation, Progression, or Severe Exacerbation? @ -No Poses a threat to life or bodily function? How? (Chest pain, [place], [place], pneumonia, PE, COPD, DKA, ARF, appy, cholecystitis, CVA, Diverticulitis, Homicidal, Suicidal, threat to staff... and all critical care pts) @ -No - Lab Data Result diagrams: 03/18/23 11:33 03/18/23 11:33 Lab Results 03/14/23 03/14/23 03/14/23 Range/Units 11:02 11:02 11:02 WBC 8.0 (3.8-10.6) k/uL RBC 4.92 (4.30-5.90) m/uL Hgb 14.9 (13.0-17.5) gm/dL Hct 42.9 (39.0-53.0) % MCV 87.1 (80.0-100.0) fL MCH 30.3 (25.0-35.0) pg MCHC 34.8 (31.0-37.0) g/dL RDW 11.9 (11.5-15.5) % Plt Count 141 L (150-450) k/uL MPV 8.1 Immature Gran % (Auto) % Absolute Nucleated RBC % Neutrophils % % Neutrophils % (Manual) 75 % Band Neuts % (Manual) 11 % Lymphocytes % % Lymphocytes % (Manual) 8 % Monocytes % % Monocytes % (Manual) 6 % Eosinophils % % Basophils % % Immature Gran # (0.00-0.04) X 10*3/uL Neutrophils # (1.80-7.70) X 10*3/uL Neutrophils # (Manual) 6.80 (1.3-7.7) k/uL Lymphocytes # (0.90-5.00) X 10*3/uL Lymphocytes # (Manual) 0.64 L (1.0-4.8) k/uL Monocytes # (0.20-1.00) X 10*3/uL Monocytes # (Manual) 0.48 (0-1.0) k/uL Eosinophils # (0.04-0.35) X 10*3/uL Basophils # (0.00-0.10) X 10*3/uL Nucleated RBCs 0 (0-0) /100 WBC NRBC/100 WBC Diff (0.00-0.01) X 10*3/uL Manual Slide Review Performed RBC Morphology Normal Sodium 142 (137-145) mmol/L Potassium 4.0 (3.5-5.1) mmol/L Chloride 99 (98-107) mmol/L Carbon Dioxide 29 (22-30) mmol/L Anion Gap 14 mmol/L BUN 23 H (9-20) mg/dL Creatinine 1.14 (0.66-1.25) mg/dL Est GFR (CKD-EPI) (>=60) Est GFR (CKD-EPI)AfAm >90 (>60 ml/min/1.73 sqM) Est GFR (CKD-EPI)NonAf 79 (>60 ml/min/1.73 sqM) BUN/Creatinine Ratio (12.00-20.00) Ratio Glucose 106 H (74-99) mg/dL Plasma Lactic Acid Andre (0.7-2.0) mmol/L Calcium 9.1 (8.4-10.2) mg/dL Total Bilirubin 0.8 (0.2-1.3) mg/dL AST 39 (17-59) U/L ALT 39 (4-49) U/L Alkaline Phosphatase 80 (38-126) U/L Total Protein 7.5 (6.3-8.2) g/dL Albumin 4.3 (3.5-5.0) g/dL Urine Color Urine Appearance (Clear) Urine pH (5.0-8.0) Ur Specific [place] (1.001-1.035) Urine Protein (Negative) Urine Glucose (UA) (Negative) Urine Ketones (Negative) Urine Blood (Negative) Urine Nitrite (Negative) Urine Bilirubin (Negative) Urine Urobilinogen (<2.0) mg/dL Ur Leukocyte Esterase (Negative) Urine RBC (0-5) /hpf Urine WBC (0-5) /hpf Urine Mucus (None) /hpf Heterophile Antibody Negative (Negative) Influenza Type A (PCR) (Not Detectd) Influenza Type B (PCR) (Not Detectd) Urine Legionella Ag (Negative) RSV (PCR) (Not Detectd) SARS-CoV-2 (PCR) (Not Detectd) 03/14/23 03/14/23 03/14/23 Range/Units 11:02 11:02 22:01 WBC (3.8-10.6) k/uL RBC (4.30-5.90) m/uL Hgb (13.0-17.5) gm/dL Hct (39.0-53.0) % MCV (80.0-100.0) fL MCH (25.0-35.0) pg MCHC (31.0-37.0) g/dL RDW (11.5-15.5) % Plt Count (150-450) k/uL MPV Immature Gran % (Auto) % Absolute Nucleated RBC % Neutrophils % % Neutrophils % (Manual) % Band Neuts % (Manual) % Lymphocytes % % Lymphocytes % (Manual) % Monocytes % % Monocytes % (Manual) % Eosinophils % % Basophils % % Immature Gran # (0.00-0.04) X 10*3/uL Neutrophils # (1.80-7.70) X 10*3/uL Neutrophils # (Manual) (1.3-7.7) k/uL Lymphocytes # (0.90-5.00) X 10*3/uL Lymphocytes # (Manual) (1.0-4.8) k/uL Monocytes # (0.20-1.00) X 10*3/uL Monocytes # (Manual) (0-1.0) k/uL Eosinophils # (0.04-0.35) X 10*3/uL Basophils # (0.00-0.10) X 10*3/uL Nucleated RBCs (0-0) /100 WBC NRBC/100 WBC Diff (0.00-0.01) X 10*3/uL Manual Slide Review RBC Morphology Sodium (137-145) mmol/L Potassium (3.5-5.1) mmol/L Chloride (98-107) mmol/L Carbon Dioxide (22-30) mmol/L Anion Gap mmol/L BUN (9-20) mg/dL Creatinine (0.66-1.25) mg/dL Est GFR (CKD-EPI) (>=60) Est GFR (CKD-EPI)AfAm (>60 ml/min/1.73 sqM) Est GFR (CKD-EPI)NonAf (>60 ml/min/1.73 sqM) BUN/Creatinine Ratio (12.00-20.00) Ratio Glucose (74-99) mg/dL Plasma Lactic Acid Andre 1.8 (0.7-2.0) mmol/L Calcium (8.4-10.2) mg/dL Total Bilirubin (0.2-1.3) mg/dL AST (17-59) U/L ALT (4-49) U/L Alkaline Phosphatase (38-126) U/L Total Protein (6.3-8.2) g/dL Albumin (3.5-5.0) g/dL Urine Color Yellow Urine Appearance Clear (Clear) Urine pH 6.5 (5.0-8.0) Ur Specific [place] 1.033 (1.001-1.035) Urine Protein 1+ H (Negative) Urine Glucose (UA) 1+ H (Negative) Urine Ketones Trace H (Negative) Urine Blood Negative (Negative) Urine Nitrite Negative (Negative) Urine Bilirubin Negative (Negative) Urine Urobilinogen <2.0 (<2.0) mg/dL Ur Leukocyte Esterase Negative (Negative) Urine RBC 1 (0-5) /hpf Urine WBC 3 (0-5) /hpf Urine Mucus Occasional H (None) /hpf Heterophile Antibody (Negative) Influenza Type A (PCR) Detected A (Not Detectd) Influenza Type B (PCR) Not Detected (Not Detectd) Urine Legionella Ag (Negative) RSV (PCR) Not Detected (Not Detectd) SARS-CoV-2 (PCR) Not Detected (Not Detectd) 03/14/23 03/15/23 03/15/23 Range/Units 22:01 02:47 02:47 WBC 7.11 (3.8-10.6) k/uL RBC 4.40 (4.30-5.90) m/uL Hgb 12.7 L (13.0-17.5) gm/dL Hct 38.6 L (39.0-53.0) % MCV 87.7 (80.0-100.0) fL MCH 28.9 (25.0-35.0) pg MCHC 32.9 (31.0-37.0) g/dL RDW 11.9 (11.5-15.5) % Plt Count 136 L (150-450) k/uL MPV 10.6 Immature Gran % (Auto) 0.40 % Absolute Nucleated RBC 0 % Neutrophils % 74.3 % Neutrophils % (Manual) % Band Neuts % (Manual) % Lymphocytes % 15.5 % Lymphocytes % (Manual) % Monocytes % 9.6 % Monocytes % (Manual) % Eosinophils % 0.1 % Basophils % 0.1 % Immature Gran # 0.03 (0.00-0.04) X 10*3/uL Neutrophils # 5.28 (1.80-7.70) X 10*3/uL Neutrophils # (Manual) (1.3-7.7) k/uL Lymphocytes # 1.10 (0.90-5.00) X 10*3/uL Lymphocytes # (Manual) (1.0-4.8) k/uL Monocytes # 0.68 (0.20-1.00) X 10*3/uL Monocytes # (Manual) (0-1.0) k/uL Eosinophils # 0.01 L (0.04-0.35) X 10*3/uL Basophils # 0.01 (0.00-0.10) X 10*3/uL Nucleated RBCs (0-0) /100 WBC NRBC/100 WBC Diff 0 (0.00-0.01) X 10*3/uL Manual Slide Review RBC Morphology Sodium 142 (137-145) mmol/L Potassium 4.0 (3.5-5.1) mmol/L Chloride 108 (98-107) mmol/L Carbon Dioxide 25.6 (22-30) mmol/L Anion Gap 8.40 mmol/L BUN 10.2 (9-20) mg/dL Creatinine 0.8 (0.66-1.25) mg/dL Est GFR (CKD-EPI) 113 (>=60) Est GFR (CKD-EPI)AfAm (>60 ml/min/1.73 sqM) Est GFR (CKD-EPI)NonAf (>60 ml/min/1.73 sqM) BUN/Creatinine Ratio 12.75 (12.00-20.00) Ratio Glucose 105 (74-99) mg/dL Plasma Lactic Acid Andre (0.7-2.0) mmol/L Calcium 8.3 L (8.4-10.2) mg/dL Total Bilirubin (0.2-1.3) mg/dL AST (17-59) U/L ALT (4-49) U/L Alkaline Phosphatase (38-126) U/L Total Protein (6.3-8.2) g/dL Albumin (3.5-5.0) g/dL Urine Color Urine Appearance (Clear) Urine pH (5.0-8.0) Ur Specific [place] (1.001-1.035) Urine Protein (Negative) Urine Glucose (UA) (Negative) Urine Ketones (Negative) Urine Blood (Negative) Urine Nitrite (Negative) Urine Bilirubin (Negative) Urine Urobilinogen (<2.0) mg/dL Ur Leukocyte Esterase (Negative) Urine RBC (0-5) /hpf Urine WBC (0-5) /hpf Urine Mucus (None) /hpf Heterophile Antibody (Negative) Influenza Type A (PCR) (Not Detectd) Influenza Type B (PCR) (Not Detectd) Urine Legionella Ag Negative (Negative) RSV (PCR) (Not Detectd) SARS-CoV-2 (PCR) (Not Detectd) Disposition Clinical Impression: Hypoxia, Influenza A, Community acquired pneumonia Disposition: ADMITTED IP TO THIS HOSP Condition: Stable Is patient prescribed a controlled substance at d/c from ED?: No Time of Disposition: 13:20 Decision to Admit Reason: Admit from EC Decision Date: 03/14/23 Decision Time: 13:20
[2023-03-14] MEDS: SODIUM CHLORIDE 0.9% 1,000 ML IV SCH (13:52)
[2023-03-14] MEDS: OSELTAMIVIR 75 MG CAP PO SCH ×2 (13:57→21:08)
[2023-03-14] MEDS: IPRATROPIUM-ALBUTEROL 3 ML NEB INHALATION SCH ×2 (14:18→20:39)
[2023-03-14] MEDS ORDERED: clonazePAM 0.5 MG TAB PO PRN (15:12)
[2023-03-14] MEDS ORDERED: CLINDAMYCIN 1% TOPICAL PRN (15:13)
[2023-03-14] MEDS: cloZAPine 100 MG TAB PO SCH (15:41)
--- NOTE | 2023-03-14 20:25 | HP ---
HISTORY AND PHYSICAL CHIEF COMPLAINTS: Cough and shortness of breath. HISTORY OF PRESENT ILLNESS: This is a 43-year-old gentleman with a past medical history of autism, living in a assisted with a caregiver, was sick for the last couple of days with cough and upper respiratory symptoms. The patient received outpatient antibiotics with lack of improvement. The patient was taken to [facility] for further evaluation and treatment. The patient's sats 70% to 88% before the EMS. Currently, the patient is unable to provide a detailed history, most of history is taken by my discussion with staff as well as discussion with family member, caregiver, and also review of chart and ER physician. The chest x-ray showed left lower lobe infiltrate and empiric antibiotics have been initiated. Influenza A is positive. PAST MEDICAL HISTORY: Reviewed include autism, rest of the history and rest of the chart is also reviewed. HOME MEDICATIONS: Reviewed include Ativan, dose and rest of medications reviewed include antibiotics. ALLERGIES: None. FAMILY HISTORY: Could not be taken. SOCIAL HISTORY: Could not be taken. REVIEW OF SYSTEMS: Could not be taken. PHYSICAL EXAMINATION: VITAL SIGNS: Pulse is 115, blood pressure is 119/76, respirations 14. HEENT: Conjunctivae normal. NECK: No jugular venous distention. CARDIOVASCULAR: S1, S2 muffled. RESPIRATIONS: Diminished at the bases, few scattered rhonchi and crackles. ABDOMEN: Soft, nontender. LEGS: No edema. No swelling. NERVOUS SYSTEM: Nonfocal. SKIN: No ulcer, rash, bleeding. JOINTS: No active deforming arthropathy. LABS: Reviewed. Chest x-ray reviewed personally. ASSESSMENT: 1. Acute influenza A with acute influenzae pneumonia left lower lobe, possible gram- negative pneumonia, acute hypoxic respiratory failure. 2. Autism. 3. Mental retardation. 4. Mild thrombocytopenia. 5. Tachycardia. RECOMMENDATIONS AND DISCUSSION: In this 43-year-old gentleman presented with multiple complex medical issues, we will monitor the patient closely. We will initiate Tamiflu, empiric antibiotics. Infectious Disease evaluation, cultures. Otherwise, DVT prophylaxis. Resume home medications once they are confirmed. Prognosis guarded because of multiple complex medical issues which I discussed and DVT prophylaxis. Prognosis discussed with family at the bedside and further recommendations to follow. MMODL / IJN: [id number] /
[2023-03-14] MEDS: LORazepam 1 MG TAB PO SCH (21:07)
[2023-03-14] MEDS: DIVALPROEX ER 500 MG TAB.ER.24H PO SCH (21:07)
[2023-03-14] MEDS: FAMOTIDINE 20 MG TAB PO SCH (21:07)
[2023-03-14] MEDS: HEPARIN SODIUM,PORCINE 5,000 UNIT/ML 1 ML VIAL SQ SCH (21:07)
[2023-03-14] MEDS: FLUTICASONE 50MCG/SPRAY NASAL 16GM EA NOSTRIL SCH (21:08)
[2023-03-14] MEDS: VITS A & D-WHITE PET-LANOLIN TUBE TOPICAL SCH (21:08)
[2023-03-14 22:15] LABS: Appearance,Urine Clear (Clear); Bilirubin,Urine Negative (Negative); Blood,Urine Negative (Negative); Color,Urine Yellow; Glucose,Urine (UA) 1+ (Negative); Ketones,Urine Trace (Negative); Leukocyte Esterase,Urine Negative (Negative); Mucus,Urine Occasional /hpf; Nitrite,Urine Negative (Negative); PH, Urine 6.5 (5.0-8.0); Protein,Urine 1+ (Negative); RBC,Urine 1 /hpf (0-5); Specific Gravity,Urine 1.033 (1.001-1.035); Urobilinogen,Urine <2.0 mg/dL (<2.0); WBC,Urine 3 /hpf (0-5)
--- NOTE | 2023-03-14 23:23 | P.CONS ---
History of Present Illness - Reason for Consult Consult date: 03/14/23 Influenza, pneumonia Requesting physician: Kelsy Lopez - Chief Complaint Fever x 2 days - History of Present Illness Patient is a 43-year-old male with a past medical history significant for autism in this patient who is nonverbal and senior care resident patient apparently started getting sick about 3 days ago with the patient has been running a fever and also noticed to have a cough which has been moderate intensity but unable to bring up any sputum no clear history of any nausea vomiting or any diarrhea patient apparently was started on oral Levaquin by his primary care physician last night however the patient did have a worsening of his symptoms and noted to have slightly hypoxic with O2 sats of 88% with the patient was brought into the ER patient also noticed to have decreased appetite on arrival to the ER patient did have a fever 100.9 F, patient was tachycardic but not hypotensive or hypoxic did have a white count of 8 creatinine was 1.1 Fo darwin was observed normal urine was negative he tested positive for influenza A chest x-ray mild left lobe infiltrate correlate for developing pneumonia the patient has been admitted to the hospital infectious disease was consulted because of pneumonia and influenza Review of Systems Positive points has been mentioned in HPI complete review could not be obtained because of his underlying mental status Past Medical History Additional Past Medical History / Comment(s): autism- non verbal, mental retardation History of Any Multi-Drug Resistant Organisms: None Reported Past Surgical History: Ear Surgery Past Psychological History: No Psychological Hx Reported Smoking Status: Never smoker Past Alcohol Use History: None Reported Past Drug Use History: None Reported Medications and Allergies Home Medications Medication Instructions Recorded Confirmed Type Cetirizine HCl 10 mg PO DAILY@0800 05/02/21 03/14/23 History Clindamycin 1% Lotion 1 applic TOPICAL BID PRN 05/02/21 03/14/23 History Fluocinonide/Emollient Base 1 applic TOPICAL BID PRN 05/02/21 03/14/23 History [Fluocinonide-E 0.05% Cream] Fluticasone Nasal [place] [Flonase 1 spray EA NOSTRIL BID@0800,2100 05/02/21 03/14/23 History Nasal [place]] Dimethic/Zinc Ox/Vits A,D/Aloe [A 1 applic TOPICAL BID@0800,209903/14/23 03/14/23 History and D Diaper Rash Cream] Divalproex ER [Depakote ER] 1,000 mg PO HS@2100 03/14/23 03/14/23 History Famotidine 40 mg PO BID@0800,2100 03/14/23 03/14/23 History LORazepam 2 mg PO HS@2100 03/14/23 03/14/23 History Vitamin B Complex + Vitamin C 1 tab PO DAILY@0800 03/14/23 03/14/23 History cloZAPine [Clozaril] 400 mg PO DAILY@1600 03/14/23 03/14/23 History Oseltamivir [Tamiflu] 75 mg PO Q12HR 3 Days #6 cap 03/18/23 Rx cefUROXime axetiL [Ceftin] 500 mg PO BID@0800,2100 3 Days #6 03/18/23 Rx tab Allergies Allergy/AdvReac Type Severity Reaction Status Date / Time No Known Allergies Allergy Verified 03/14/23 14:01 Physical Exam Vitals: Vital Signs Temp Pulse Resp BP Pulse Ox 03/14/23 14:30 117 H 03/14/23 14:22 115 H 03/14/23 13:01 99.7 F H 117 H 14 119/76 91 L 03/14/23 11:29 89 L 03/14/23 10:19 100.9 F H 121 H 18 134/90 92 L Intake and Output 03/14/23 03/14/23 03/14/23 06:59 14:59 22:59 Other: Weight 70.307 kg GENERAL DESCRIPTION: Middle-aged male lying in bed, no distress. No tachypnea or accessory muscle of respiration use. HEENT: Shows Pallor , no scleral icterus. Oral mucous membrane is dry. No pharyngeal erythema or thrush NECK: Trachea central, no thyromegaly. LUNGS: Unlabored breathing. Coarse breath sounds bilaterally HEART: S1, S2, regular rate and rhythm. No loud murmur ABDOMEN: Soft, no tenderness , guarding or rigidity, no organomegaly EXTREMITIES: No edema of feet. SKIN: No rash, no masses palpable. NEUROLOGICAL: The patient is awake, but nonverbal orientation could not be determined Results CBC & Chem 7: 03/18/23 11:33 03/18/23 11:33 Labs: Abnormal Lab Results - Last 24 Hours (Table) 03/14/23 03/14/2324 Range/Units 11:02 11:02 11:02 Plt Count 141 L (150-450) k/uL Lymphocytes # (Manual) 0.64 L (1.0-4.8) k/uL BUN 23 H (9-20) mg/dL Glucose 106 H (74-99) mg/dL Influenza Type A (PCR) Detected A (Not Detectd) Assessment and Plan (1) Community acquired pneumonia Status: Acute Code(s): J18.9 - PNEUMONIA, UNSPECIFIED ORGANISM SNOMED Code(s): 434340801 (2) Influenza A Status: Acute Code(s): J10.1 - FLU DUE TO OTH IDENT INFLUENZA VIRUS W OTH RESP MANIFEST SNOMED Code(s): 220635345 Plan: 1patient presented to hospital with fever cough hypoxemia and this patient has been diagnosed with acute influenza A and also developing infiltrate on the chest x-ray concerning for pneumonia 2-we will try to obtain sputum for Gram stain and culture check a CRP and a procalcitonin 3-continue the patient on Tamiflu to finish a 5-day course of therapy 4-continue with Rocephin and Zithromax for suspected secondary bacterial pneumo mike We will follow on clinical condition and cultures to further adjust medication if needed Thank you for this consultation we will follow the patient along with you Dictation was produced using [employer] dictation software. please excuse any grammatical, word or spelling errors. Time with Patient: Greater than 30
[2023-03-15] MEDS: SODIUM CHLORIDE 0.9% 1,000 ML IV SCH ×2 (02:17→17:13)
--- NOTE | 2023-03-15 07:19 | XR ---
EXAMINATION TYPE: XR chest 1V portable DATE OF EXAM: 03/15/2023 COMPARISON: 03/14/2023 INDICATION: Pneumonia TECHNIQUE: Single frontal view of the chest is obtained. FINDINGS: The heart size is normal. The pulmonary vasculature is normal. Left lower lobe infiltrate is present. This is worsening from comparison. Correlate for pneumonia. IMPRESSION: 1. Worsening left lower lobe infiltrate. Continued follow-up is recommended
[2023-03-15] MEDS: ACETAMINOPHEN TAB 325 MG TAB PO PRN ×2 (07:37→19:10)
[2023-03-15] MEDS: FAMOTIDINE 20 MG TAB PO SCH ×2 (08:38→20:25)
[2023-03-15] MEDS: AZITHROMYCIN 500 MG TAB PO SCH (08:38)
[2023-03-15] MEDS: LORATADINE 10 MG TAB PO SCH (08:38)
[2023-03-15] MEDS: VITS A & D-WHITE PET-LANOLIN TUBE TOPICAL SCH ×2 (08:39→20:28)
[2023-03-15] MEDS: FLUTICASONE 50MCG/SPRAY NASAL 16GM EA NOSTRIL SCH ×2 (08:39→20:27)
[2023-03-15] MEDS: VITAMIN C PO SCH (08:40)
[2023-03-15] MEDS: VITAMIN B COMPLEX PO SCH (08:40)
[2023-03-15] MEDS: HEPARIN SODIUM,PORCINE 5,000 UNIT/ML 1 ML VIAL SQ SCH ×2 (08:40→20:25)
[2023-03-15] MEDS: IPRATROPIUM-ALBUTEROL 3 ML NEB INHALATION SCH ×4 (08:59→21:04)
[2023-03-15 10:05] LABS: Basophils # (A) 0.01 X 10*3/uL (0.00-0.10); Basophils % (A) 0.1 %; Eosinophils # (A) 0.01 X 10*3/uL (0.04-0.35); Eosinophils % (A) 0.1 %; HCT 38.6 % (39.6-50.0); HGB 12.7 g/dL (13.0-17.0); Lymphocytes % (A) 15.5 %; MCH 28.9 pg (27.0-32.0); MCHC 32.9 g/dL (32.0-37.0); MCV 87.7 FL (80.0-97.0); Mean Platelet Volume 10.6 FL (9.5-12.2); Monocytes # (A) 0.68 X 10*3/uL (0.20-1.00); Monocytes % (A) 9.6 %; NRBC Per 100 WBC 0 X 10*3/uL (0.00-0.01); Neutrophils # (A) 5.28 X 10*3/uL (1.80-7.70); Neutrophils % (A) 74.3 %; Platelet Count 136 X 10*3/uL (140-440); RDW 11.9 % (11.5-14.5); WBC 7.11 X 10*3/uL (4.50-10.00)
[2023-03-15 10:13] LABS: BUN/Creat Ratio 12.75 Ratio (12.00-20.00); Blood Urea Nitrogen 10.2 mg/dL (9.0-27.0); Calcium 8.3 mg/dL (8.7-10.3); Carbon Dioxide 25.6 mmol/L (21.6-31.8); Chloride 108 mmol/L (96-109); Glucose 105 mg/dL (70-110); Sodium 142 mmol/L (135-145)
[2023-03-15] MEDS: OSELTAMIVIR 75 MG CAP PO SCH ×2 (13:17→20:25)
[2023-03-15] MEDS: cloZAPine 100 MG TAB PO SCH (17:11)
--- NOTE | 2023-03-15 17:15 | P.PN ---
Subjective Progress Note Date: 03/15/23 Principal diagnosis: Reason for follow-up is acute influenza and pneumonia Patient is a 43-year-old male with a past medical history significant for autism in this patient who is nonverbal and senior care resident patient apparently started getting sick about 3 days before presentation the hospital mostly cough congestion or presenting to the hospital he did have a fever tested positive for influenza A chest x-ray with a left lower lobe infiltrate. On today's evaluation that is 03/15/2023 patient did have a fever 100.7 earlier this morning patient is a breathing comfortably on room air patient is sleepy no vomiting diarrhea has been reported by the mother at the bedside. Patient did have white count of 7.11, creatinine 0.8 Objective - Vital Signs Vital signs: Vital Signs Temp 99.4 F 03/15/23 08:45 Pulse 102 H 03/15/23 12:20 Resp 18 03/15/23 08:45 BP 120/96 03/15/23 08:45 Pulse Ox 97 03/15/23 08:59 FiO2 Intake & Output 03/14/23 03/15/23 03/15/23 18:59 06:59 18:59 Output Total 700 Balance -700 Weight 70.307 kg Output: Urine 700 Condom 700 - Exam GENERAL DESCRIPTION: An middle-aged male lying in bed in no distress RESPIRATORY SYSTEM: Unlabored breathing , decreased breath sounds at bases HEART: S1 S2 regular rate and rhythm , ABDOMEN: Soft , no tenderness EXTREMITIES: No edema feet - Labs CBC & Chem 7: 03/15/23 02:47 03/15/23 02:47 Labs: Abnormal Lab Results - Last 24 Hours (Table) 03/14/23 03/15/23 03/15/23 Range/Units 22:01 02:47 02:47 Hgb 12.7 L (13.0-17.0) g/dL Hct 38.6 L (39.6-50.0) % Plt Count 136 L (140-440) X 10*3/uL Eosinophils # 0.01 L (0.04-0.35) X 10*3/uL Calcium 8.3 L (8.7-10.3) mg/dL Urine Protein 1+ H (Negative) Urine Glucose (UA) 1+ H (Negative) Urine Ketones Trace H (Negative) Urine Mucus Occasional H (None) /hpf Assessment and Plan (1) Community acquired pneumonia Current Visit: Yes Status: Acute Code(s): J18.9 - PNEUMONIA, UNSPECIFIED ORGANISM SNOMED Code(s): 852412342 (2) Influenza A Current Visit: Yes Status: Acute Code(s): J10.1 - FLU DUE TO OTH IDENT INFLUENZA VIRUS W OTH RESP MANIFEST SNOMED Code(s): 290779249 Plan: 1patient presented to hospital with fever cough hypoxemia and this patient has been diagnosed with acute influenza A and also developing infiltrate on the chest x-ray concerning for pneumonia 2-we will try to obtain sputum for Gram stain and culture, waiting for CRP and a procalcitonin 3-patient to continue the patient on Tamiflu to finish a 5-day course of therapy 4-patient to continue with Rocephin and Zithromax and monitor clinical course closely Dictation was produced using [employer] dictation software. please excuse any grammatical, word or spelling errors. Time with Patient: Less than 30
[2023-03-15] MEDS: DIVALPROEX ER 500 MG TAB.ER.24H PO SCH (20:25)
[2023-03-15] MEDS: LORazepam 1 MG TAB PO SCH (20:25)
--- NOTE | 2023-03-15 22:34 | PN ---
PROGRESS NOTE DATE OF SERVICE: 03/15/2023 SUBJECTIVE: This is a 43-year-old gentleman who was admitted with acute influenza A, pneumonia, is being closely monitored. No chest pain, no palpitation. The patient has significant pneumonia in the left lower lobe. OBJECTIVE: VITAL SIGNS: Pulse is 102, blood pressure 120/80, respirations 18. CHEST: Few scattered rhonchi and crackles. ABDOMEN: Soft. NERVOUS SYSTEM: Nonfocal. LABORATORY DATA: Reviewed. ASSESSMENT: 1. Acute influenza A with acute influenza pneumonia left lower lobe, possibly gram- negative with acute hypoxic respiratory failure. 2. Autism. 3. Mental retardation. 4. Tachycardia. 5. Mild thrombocytopenia. RECOMMENDATIONS: Recommended to continue current management, continue symptomatic treatment. Continue the empiric antibiotics, otherwise Infectious Disease evaluation. Continue the rest of medications. Prognosis guarded. Repeat labs in the morning. Further recommendations to follow. Dr. Kendall will follow. MMODL / BARN: [id number] / [place]
[2023-03-16] MEDS: SODIUM CHLORIDE 0.9% 1,000 ML IV SCH ×2 (03:18→20:41)
[2023-03-16] MEDS: VITAMIN B COMPLEX PO SCH (08:34)
[2023-03-16] MEDS: VITAMIN C PO SCH (08:34)
[2023-03-16] MEDS: FAMOTIDINE 20 MG TAB PO SCH ×2 (08:40→20:38)
[2023-03-16] MEDS: LORATADINE 10 MG TAB PO SCH (08:40)
[2023-03-16] MEDS: AZITHROMYCIN 500 MG TAB PO SCH (08:40)
[2023-03-16] MEDS: HEPARIN SODIUM,PORCINE 5,000 UNIT/ML 1 ML VIAL SQ SCH ×3 (08:40→20:38)
[2023-03-16] MEDS: VITS A & D-WHITE PET-LANOLIN TUBE TOPICAL SCH ×2 (08:41→20:39)
--- NOTE | 2023-03-16 09:08 | P.PN ---
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 Patient had a fever and nonproductive cough and decreased appetite. Lab workup on admission showed positive influenza A and patient has been started on Tamiflu. Chest x-ray on admission showed left lower lobe infiltrate. Patient also on Rocephin and Zithromax. Patient is seen and evaluated laying comfortably in bed this morning. Objective - Vital Signs Vital signs: Vital Signs Temp 99.8 F H 03/16/23 08:10 Pulse 106 H 03/16/23 08:10 Resp 20 03/16/23 08:10 BP 117/69 03/16/23 08:10 Pulse Ox 93 L 03/16/23 08:10 FiO2 - Constitutional General appearance: Present: cooperative, no acute distress - EENT Eyes: Present: PERRLA - Neck Neck: Present: normal ROM. Absent: lymphadenopathy, rigidity - Respiratory Respiratory: bilateral: rhonchi - Cardiovascular Rhythm: regular Heart sounds: normal: S1, S2 - Gastrointestinal General gastrointestinal: Present: soft. Absent: tenderness - Integumentary Integumentary: Present: normal, normal turgor - Musculoskeletal Musculoskeletal: Present: generalized weakness - Labs CBC & Chem 7: 03/15/23 02:47 03/15/23 02:47 Labs: Abnormal Lab Results - Last 24 Hours (Table) 03/15/23 03/15/23 Range/Units 02:47 02:47 Hgb 12.7 L (13.0-17.0) g/dL Hct 38.6 L (39.6-50.0) % Plt Count 136 L (140-440) X 10*3/uL Eosinophils # 0.01 L (0.04-0.35) X 10*3/uL Calcium 8.3 L (8.7-10.3) mg/dL Microbiology - Last 24 Hours (Table) 03/14/23 10:48 Blood Culture - Preliminary Blood 03/14/23 11:06 Blood Culture Gram Stain - Preliminary Blood Assessment and Plan (1) Influenza A Current Visit: Yes Status: Acute Code(s): J10.1 - FLU DUE TO OTH IDENT INFLUENZA VIRUS W OTH RESP MANIFEST SNOMED Code(s): 717578151 (2) Community acquired pneumonia Current Visit: Yes Status: Acute Code(s): J18.9 - PNEUMONIA, UNSPECIFIED ORGANISM SNOMED Code(s): 180185832 (3) Autism Current Visit: Yes Status: Acute Code(s): F84.0 - AUTISTIC DISORDER SNOMED Code(s): 49389443 Plan: Continue Tamiflu and IV antibiotics Check CBC and CMP in the morning Patient seen and evaluated by nurse practitioner, physician in agreement with plan
[2023-03-16] MEDS: IPRATROPIUM-ALBUTEROL 3 ML NEB INHALATION SCH ×5 (09:17→20:26)
[2023-03-16] MEDS: FLUTICASONE 50MCG/SPRAY NASAL 16GM EA NOSTRIL SCH ×2 (09:48→20:39)
[2023-03-16] MEDS: OSELTAMIVIR 75 MG CAP PO SCH ×2 (09:48→20:38)
[2023-03-16] MEDS: cloZAPine 100 MG TAB PO SCH (15:55)
[2023-03-16] MEDS: DIVALPROEX ER 500 MG TAB.ER.24H PO SCH (20:38)
[2023-03-16] MEDS: LORazepam 1 MG TAB PO SCH (20:38)
[2023-03-17] MEDS: SODIUM CHLORIDE 0.9% 1,000 ML IV SCH ×2 (05:18→21:10)
[2023-03-17] MEDS: IPRATROPIUM-ALBUTEROL 3 ML NEB INHALATION SCH (08:15)
[2023-03-17] MEDS: FAMOTIDINE 20 MG TAB PO SCH ×2 (08:22→21:15)
[2023-03-17] MEDS: OSELTAMIVIR 75 MG CAP PO SCH ×2 (08:22→21:15)
[2023-03-17] MEDS: LORATADINE 10 MG TAB PO SCH (08:22)
[2023-03-17] MEDS: VITAMIN C PO SCH (08:23)
[2023-03-17] MEDS: HEPARIN SODIUM,PORCINE 5,000 UNIT/ML 1 ML VIAL SQ SCH ×3 (08:23→21:15)
[2023-03-17] MEDS: VITS A & D-WHITE PET-LANOLIN TUBE TOPICAL SCH ×2 (08:23→21:15)
[2023-03-17] MEDS: FLUTICASONE 50MCG/SPRAY NASAL 16GM EA NOSTRIL SCH ×2 (08:23→21:15)
[2023-03-17] MEDS: VITAMIN B COMPLEX PO SCH (08:23)
--- NOTE | 2023-03-17 08:45 | P.PN ---
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 Patient had a fever and nonproductive cough and decreased appetite. Lab workup on admission showed positive influenza A and patient has been started on Tamiflu. Chest x-ray on admission showed left lower lobe infiltrate. Patient also on Rocephin and Zithromax. Patient is seen and evaluated laying comfortably in bed this morning. 03/17/2023 Patient is seen and evaluated resting comfortably in bed this morning. Patient is still having congestion along with a congested cough. He is tolerating diet. Labs not back for today at time of dictation. Objective - Vital Signs Vital signs: Vital Signs Temp 98.3 F 03/17/23 02:36 Pulse 92 03/17/23 07:02 Resp 18 03/17/23 07:02 BP 107/71 03/17/23 07:02 Pulse Ox 94 L 03/17/23 07:02 FiO2 Intake & Output 03/16/23 03/17/23 03/17/23 18:59 06:59 18:59 Weight 70.307 kg Other: # Voids 1 - Constitutional General appearance: Present: cooperative, no acute distress - EENT Eyes: Present: PERRLA - Neck Neck: Present: normal ROM. Absent: lymphadenopathy, rigidity - Respiratory Respiratory: right: rales, rhonchi - Cardiovascular Rhythm: regular Heart sounds: normal: S1, S2 - Gastrointestinal General gastrointestinal: Present: soft. Absent: tenderness - Integumentary Integumentary: Present: normal, normal turgor - Musculoskeletal Musculoskeletal: Present: generalized weakness - Labs CBC & Chem 7: 03/15/23 02:47 03/15/23 02:47 Labs: Microbiology - Last 24 Hours (Table) 03/14/23 10:48 Blood Culture - Preliminary Blood 03/14/23 11:06 Blood Culture Gram Stain - Preliminary Blood Blood Culture - Preliminary Coagulase Negative Staph Assessment and Plan (1) Influenza A Current Visit: Yes Status: Acute Code(s): J10.1 - FLU DUE TO OTH IDENT INFLUENZA VIRUS W OTH RESP MANIFEST SNOMED Code(s): 066281221 (2) Community acquired pneumonia Current Visit: Yes Status: Acute Code(s): J18.9 - PNEUMONIA, UNSPECIFIED ORGANISM SNOMED Code(s): 704604726 (3) Autism Current Visit: Yes Status: Acute Code(s): F84.0 - AUTISTIC DISORDER SNOMED Code(s): 13339077 Plan: Patient is on scheduled updraft treatments, we'll make sure he is getting those treatments. Check CBC and CMP in the morning Anticipate discharge within the next 24-48 hours. Patient seen and evaluated by nurse practitioner, physician in agreement with plan
[2023-03-17 10:47] LABS: HCT 40.2 % (39.6-50.0); HGB 13.6 g/dL (13.0-17.0); MCH 29.2 pg (27.0-32.0); MCHC 33.8 g/dL (32.0-37.0); MCV 86.5 FL (80.0-97.0); Mean Platelet Volume 10.7 FL (9.5-12.2); NRBC Per 100 WBC 0 X 10*3/uL (0.00-0.01); Platelet Count 202 X 10*3/uL (140-440); RBC 4.65 X 10*6/uL (4.40-5.60); RDW 11.9 % (11.5-14.5)
[2023-03-17] MEDS: BETAMETHASONE DIPROPIONATE 0.05% CREAM 15 GM TUBE TOPICAL PRN (12:46)
[2023-03-17 12:53] LABS: ALT 24 U/L (10-49); AST 21 U/L (14-35); Albumin 3.7 g/dL (3.8-4.9); Albumin/Globulin Ratio 1.54 Ratio (1.60-3.17); Alkaline Phosphatase 60 U/L (41-126); BUN/Creat Ratio 16.25 Ratio (12.00-20.00); Calcium 9.4 mg/dL (8.7-10.3); Carbon Dioxide 24.4 mmol/L (21.6-31.8); Chloride 106 mmol/L (96-109); Globulin 2.4 g/dL (1.6-3.3); Glucose 102 mg/dL (70-110); Potassium 4.3 mmol/L (3.5-5.5); Sodium 143 mmol/L (135-145); Total Bilirubin 0.6 mg/dL (0.3-1.2); Total Protein 6.1 g/dL (6.2-8.2)
--- NOTE | 2023-03-17 12:57 | P.PN ---
Subjective Progress Note Date: 03/16/23 Principal diagnosis: Reason for follow-up is acute influenza and pneumonia Patient is a 43-year-old male with a past medical history significant for autism in this patient who is nonverbal and correction resident patient apparently started getting sick about 3 days before presentation the hospital mostly cough congestion or presenting to the hospital he did have a fever tested positive for influenza A chest x-ray with a left lower lobe infiltrate. On today's evaluation that is 03/16/2023 patient fever pattern has improved and the patient did have temperature of 99.8 F this morning, patient is a breathing comfortably on room air, patient unable to provide any history no vomiting diarrhea or mental changes reported by the nursing staff Patient did have white count of 7.11, creatinine 0.8 as of 03/15/2023 blood culture with gram-positive cocci Objective - Vital Signs Vital signs: Vital Signs Temp 98.1 F 03/16/23 13:11 Pulse 97 03/16/23 13:11 Resp 20 03/16/23 13:11 BP 124/85 03/16/23 13:11 Pulse Ox 97 03/16/23 13:11 FiO2 Intake & Output 03/15/23 03/16/23 03/16/23 18:59 06:59 18:59 Weight 70.307 kg - Exam GENERAL DESCRIPTION: An middle-aged male lying in bed in no distress RESPIRATORY SYSTEM: Unlabored breathing , decreased breath sounds at bases HEART: S1 S2 regular rate and rhythm , ABDOMEN: Soft , no tenderness EXTREMITIES: No edema feet - Labs CBC & Chem 7: 03/17/23 06:34 03/17/23 06:34 Labs: Microbiology - Last 24 Hours (Table) 03/14/23 11:06 Blood Culture Gram Stain - Preliminary Blood Blood Culture - Preliminary Coagulase Negative Staph 03/14/23 10:48 Blood Culture - Preliminary Blood Assessment and Plan (1) Community acquired pneumonia Current Visit: Yes Status: Acute Code(s): J18.9 - PNEUMONIA, UNSPECIFIED ORGANISM SNOMED Code(s): 059632871 (2) Influenza A Current Visit: Yes Status: Acute Code(s): J10.1 - FLU DUE TO OTH IDENT INFLUENZA VIRUS W OTH RESP MANIFEST SNOMED Code(s): 970851762 (3) Positive blood culture Current Visit: Yes Status: Acute Code(s): R78.81 - BACTEREMIA SNOMED Code(s): 757242645 Plan: 1patient presented to hospital with fever cough hypoxemia and this patient has been diagnosed with acute influenza A and also developing infiltrate on the chest x-ray concerning for pneumonia 2-positive blood culture with gram-positive cocci possible skin contamination wi ll wait for the ID no need for vancomycin 3-patient to continue the patient on Tamiflu to finish a 5-day course of therapy 4-patient to continue with Rocephin and Zithromax and continue with supportive care Dictation was produced using [employer] dictation software. please excuse any grammatical, word or spelling errors. Time with Patient: Less than 30
--- NOTE | 2023-03-17 12:58 | P.PN ---
Subjective Progress Note Date: 03/17/23 Principal diagnosis: Reason for follow-up is acute influenza and pneumonia Patient is a 43-year-old male with a past medical history significant for autism in this patient who is nonverbal and residential resident patient apparently started getting sick about 3 days before presentation the hospital mostly cough congestion or presenting to the hospital he did have a fever tested positive for influenza A chest x-ray with a left lower lobe infiltrate. On today's evaluation that is 03/17/2023 patient is afebrile this morning, patient is a breathing comfortably on room air, patient unable to provide any history no vomiting diarrhea or mental changes reported by the nursing staff Patient did have white count of 3.80, creatinine 0.8 blood culture with coagulase-negative staph Objective - Vital Signs Vital signs: Vital Signs Temp 98.3 F 03/17/23 02:36 Pulse 92 03/17/23 07:02 Resp 18 03/17/23 08:00 BP 107/71 03/17/23 07:02 Pulse Ox 94 L 03/17/23 07:02 FiO2 Intake & Output 03/16/23 03/17/23 03/17/23 18:59 06:59 18:59 Weight 70.307 kg Other: # Voids 1 - Exam GENERAL DESCRIPTION: An middle-aged male lying in bed in no distress RESPIRATORY SYSTEM: Unlabored breathing , decreased breath sounds at bases HEART: S1 S2 regular rate and rhythm , ABDOMEN: Soft , no tenderness EXTREMITIES: No edema feet - Labs CBC & Chem 7: 03/17/23 06:34 03/17/23 06:34 Labs: Abnormal Lab Results - Last 24 Hours (Table) 03/17/23 03/17/23 Range/Units 06:34 06:34 WBC 3.80 L (4.50-10.00) X 10*3/uL Anion Gap 12.60 H (4.00-12.00) mmol/L Total Protein 6.1 L (6.2-8.2) g/dL Albumin 3.7 L (3.8-4.9) g/dL Albumin/Globulin Ratio 1.54 L (1.60-3.17) Ratio Microbiology - Last 24 Hours (Table) 03/14/23 11:06 Blood Culture Gram Stain - Final Blood Blood Culture - Final Coagulase Negative Staph 01/13/24 10:48 Blood Culture - Preliminary Blood Assessment and Plan (1) Community acquired pneumonia Current Visit: Yes Status: Acute Code(s): J18.9 - PNEUMONIA, UNSPECIFIED ORG ANISM SNOMED Code(s): 460455085 (2) Influenza A Current Visit: Yes Status: Acute Code(s): J10.1 - FLU DUE TO OTH IDENT INFLUENZA VIRUS W OTH RESP MANIFEST SNOMED Code(s): 932346165 (3) Positive blood culture Current Visit: Yes Status: Acute Code(s): R78.81 - BACTEREMIA SNOMED Code(s): 085011697 Plan: 1patient presented to hospital with fever cough hypoxemia and this patient has been diagnosed with acute influenza A and also developing infiltrate on the chest x-ray concerning for pneumonia 2-positive blood culture with gram-positive cocci that has been finalized as coagulase-negative staph possible skin contamination no need for vancomycin 3-patient to continue the patient on Tamiflu to finish a 5-day course of therapy 4-patient to continue with Rocephin and Zithromax and plan to finish therapy short course of oral Ceftin Dictation was produced using [employer] software. please excuse any grammatical, word or spelling errors.
[2023-03-17] MEDS: cloZAPine 100 MG TAB PO SCH (16:22)
[2023-03-17] MEDS: DIVALPROEX ER 500 MG TAB.ER.24H PO SCH (21:14)
[2023-03-17] MEDS: LORazepam 1 MG TAB PO SCH (21:15)
[2023-03-18 07:57] VITALS: BP 112/77; PULSE 93; RESP 18; TEMP 97.4
--- NOTE | 2023-03-18 08:46 | P.DS ---
Providers Date of admission: 03/16/23 10:21 Attending physician: Rony Kendall Consults: 03/14/23 15:12 Consult Physician Urgent Consulting Provider: Jacob Vaughn Consult Reason/Comments: influenza, pneumonia Do you want consulting provider notified?: Yes Primary care physician: Rony Kendall [facility] Course: The patient is a 43-year-old black male essentially admitted for Tamiflu due to influenza A and element of bronchitis. Empiric treatment for tracheal bronchitis/pneumonia was given. He was started on Tamiflu and Rocephin with appropriate improvement. Due to his autism and clinical findings he was kept for an extra day. He is now transferred on room oxygen tolerating diet without diarrhea. The patient will be discharged in stable condition to follow-up with me in about a week. Patient Condition at Discharge: Stable Plan - Discharge Summary New Discharge Prescriptions: New Oseltamivir [Tamiflu] 75 mg PO Q12HR 3 Days #6 cap Continue Fluocinonide/Emollient Base [Fluocinonide-E 0.05% Cream] 1 applic TOPICAL BID PRN PRN Reason: Skin Irritation Fluticasone Nasal [place] [Flonase Nasal [place]] 1 spray EA NOSTRIL BID@0800,2100 Cetirizine HCl 10 mg PO DAILY@0800 cloZAPine [Clozaril] 400 mg PO DAILY@1600 Famotidine 40 mg PO BID@0800,2100 LORazepam 2 mg PO HS@2100 cefUROXime axetiL [Ceftin] 500 mg PO BID@0800,2100 3 Days #6 tab Clindamycin 1% Lotion 1 applic TOPICAL BID PRN PRN Reason: Skin Irritation Vitamin B Complex + Vitamin C 1 tab PO DAILY@0800 Dimethic/Zinc Ox/Vits A,D/Aloe [A and D Diaper Rash Cream] 1 applic TOPICAL BID@0800,2100 Divalproex ER [Depakote ER] 1,000 mg PO HS@2100 Discontinued Levofloxacin [Levaquin] 500 mg PO HS@2100 Discharge Medication List Cetirizine HCl 10 mg PO DAILY@0800 05/02/21 [History] Clindamycin 1% Lotion 1 applic TOPICAL BID PRN 05/02/21 [History] Fluocinonide/Emollient Base [Fluocinonide-E 0.05% Cream] 1 applic TOPICAL BID PRN 05/02/21 [History] Fluticasone Nasal [place] [Flonase Nasal [place]] 1 spray EA NOSTRIL BID@08,209905/02/21 [History] Dimethic/Zinc Ox/Vits A,D/Aloe [A and D Diaper Rash Cream] 1 applic TOPICAL BID@0800,209903/14/23 [History] Divalproex ER [Depakote ER] 1,000 mg PO HS@209903/14/23 [History] Famotidine 40 mg PO BID@799,209903/14/23 [History] LORazepam 2 mg PO HS@209903/14/23 [History] Vitamin B Complex + Vitamin C 1 tab PO DAILY@79903/14/23 [History] cloZAPine [Clozaril] 400 mg PO DAILY@1600 03/14/23 [History] Oseltamivir [Tamiflu] 75 mg PO Q12HR 3 Days #6 cap 03/18/23 [Rx] cefUROXime axetiL [Ceftin] 500 mg PO BID@799,2099 3 Days #6 tab 03/18/23 [Rx] Follow up Appointment(s)/Referral(s): Rony Kendall MD [Primary Care Provider] - 3 Days Discharge Disposition: HOME SELF-CARE
[2023-03-18] MEDS: HEPARIN SODIUM,PORCINE 5,000 UNIT/ML 1 ML VIAL SQ SCH (08:52)
[2023-03-18] MEDS: VITAMIN B COMPLEX PO SCH (08:54)
[2023-03-18] MEDS: VITAMIN C PO SCH (08:54)
[2023-03-18] MEDS: BETAMETHASONE DIPROPIONATE 0.05% CREAM 15 GM TUBE TOPICAL PRN (08:56)
[2023-03-18] MEDS: OSELTAMIVIR 75 MG CAP PO SCH (08:57)
[2023-03-18] MEDS: FAMOTIDINE 20 MG TAB PO SCH (08:57)
[2023-03-18] MEDS: LORATADINE 10 MG TAB PO SCH (08:57)
[2023-03-18] MEDS: FLUTICASONE 50MCG/SPRAY NASAL 16GM EA NOSTRIL SCH (08:58)
[2023-03-18] MEDS: VITS A & D-WHITE PET-LANOLIN TUBE TOPICAL SCH (08:58)
[2023-03-18] MEDS: SODIUM CHLORIDE 0.9% 1,000 ML IV SCH (11:20)
--- NOTE | 2023-03-18 12:37 | P.PN ---
Subjective Progress Note Date: 03/18/23 Principal diagnosis: Reason for follow-up is acute influenza and pneumonia Patient is a 43-year-old male with a past medical history significant for autism in this patient who is nonverbal and snf resident patient apparently started getting sick about 3 days before presentation the hospital mostly cough congestion or presenting to the hospital he did have a fever tested positive for influenza A chest x-ray with a left lower lobe infiltrate. On today's evaluation that is 03/18/2023, the patient remains to be afebrile, patient is a breathing comfortably on room air, patient awake and alert in no distress nonverbal did not provide any history no vomiting or diarrhea has been reported Patient did have white count of 3.80, creatinine 0.8 as of yesterday no lab draw today blood culture with coagulase-negative staph Objective - Vital Signs Vital signs: Vital Signs Temp 97.4 F L 03/18/23 07:15 Pulse 93 03/18/23 07:15 Resp 18 03/18/23 07:15 BP 112/77 03/18/23 07:15 Pulse Ox 94 L 03/18/23 07:15 FiO2 Intake & Output 03/17/23 03/18/23 03/18/23 18:59 06:59 18:59 Intake Total 50 Balance 50 Intake: Intake, IV Titration 50 Amount cefTRIAXone 2 gm In 50 Sodium Chloride 0.9% 50 ml @ 100 mls/hr IVPB Q24HR [facility] Rx#:[id number] - Exam GENERAL DESCRIPTION: An middle-aged male lying in bed in no distress RESPIRATORY SYSTEM: Unlabored breathing , decreased breath sounds at bases HEART: S1 S2 regular rate and rhythm , ABDOMEN: Soft , no tenderness EXTREMITIES: No edema feet - Labs CBC & Chem 7: 03/17/23 06:34 03/17/23 06:34 Labs: Abnormal Lab Results - Last 24 Hours (Table) 03/17/23 03/17/23 Range/Units 06:34 06:34 WBC 3.80 L (4.50-10.00) X 10*3/uL Anion Gap 12.60 H (4.00-12.00) mmol/L Total Protein 6.1 L (6.2-8.2) g/dL Albumin 3.7 L (3.8-4.9) g/dL Albumin/Globulin Ratio 1.54 L (1.60-3.17) Ratio Microbiology - Last 24 Hours (Table) 03/14/23 10:48 Blood Culture - Preliminary Blood 03/14/23 11:06 Blood Culture Gram Stain - Final Blood Blood Culture - Final Coagulase Negative Staph Assessment and Plan (1) Community acquired pneumonia Current Visit: Yes Status: Acute Code(s): J18.9 - PNEUMONIA, UNSPECIFIED ORGANISM SNOMED Code(s): 503106525 (2) Influenza A Current Visit: Yes Status: Acute Code(s): J10.1 - FLU DUE TO OTH IDENT INFLUENZA VIRUS W OTH RESP MANIFEST SNOMED Code(s): 577837798 (3) Positive blood culture Current Visit: Yes Status: Acute Code(s): R78.81 - BACTEREMIA SNOMED Code(s): 978002496 Plan: 1patient presented to hospital with fever cough hypoxemia and this patient has been diagnosed with acute influenza A and also developing infiltrate on the chest x-ray concerning for pneumonia 2-positive blood culture with gram-positive cocci that has been finalized as coagulase-negative staph possible skin contamination no need for vancomycin 3-patient to continue the patient on Tamiflu to finish a 5-day course of therapy 4-patient seem to have shown clinical improvement and will finish therapy short course of oral Ceftin Mother at the bedside questions were answered Dictation was produced using [employer] dictation software. please excuse any grammatical, word or spelling errors. Time with Patient: Less than 30
[2023-03-18 12:49] LABS: HCT 46.3 % (39.0-53.0); HGB 15.6 gm/dL (13.0-17.5); MCH 29.6 pg (25.0-35.0); MCHC 33.8 g/dL (31.0-37.0); MCV 87.7 fL (80.0-100.0); Mean Platelet Volume 8.1; Platelet Count 211 k/uL (150-450); RBC 5.28 m/uL (4.30-5.90); RDW 11.9 % (11.5-15.5)
[2023-03-18 13:02] LABS: ALT 28 U/L (4-49); AST 26 U/L (17-59); African American GFR (CKD) >90 (>60 ml/min/1.73 sqM); Albumin 4.1 g/dL (3.5-5.0); Albumin/Globulin Ratio 1.3; Alkaline Phosphatase 71 U/L (38-126); Anion Gap 14 mmol/L; Blood Urea Nitrogen 18 mg/dL (9-20); Calcium 9.7 mg/dL (8.4-10.2); Carbon Dioxide 23 mmol/L (22-30); Chloride 108 mmol/L (98-107); Globulin 3.1 g/dL; Glucose 113 mg/dL (74-99); Non-African American GFR(CKD) >90 (>60 ml/min/1.73 sqM); Potassium 4.5 mmol/L (3.5-5.1); Sodium 145 mmol/L (137-145); Total Bilirubin 0.7 mg/dL (0.2-1.3); Total Protein 7.2 g/dL (6.3-8.2)
[2023-03-18] MEDS: cloZAPine 100 MG TAB PO SCH (15:12)
== END 2023-03-18 15:24 | disposition home or self-care (01) | DRG 177 ==
LOC: EC 10:15 → 4SSUR 13:21 → OBSVTOIN 03-16 10:21
PROVIDERS: ADMIT Family Medicine; ATTEND Family Medicine
DX: J10.01 Influenza due to other identified influenza virus with the same other identified influenza virus pneumonia (principal); J96.01 Acute respiratory failure with hypoxia; J15.69 Pneumonia due to other Gram-negative bacteria; F84.0 Autistic disorder; D69.6 Thrombocytopenia, unspecified; F79 Unspecified intellectual disabilities; Z79.899 Other long term (current) drug therapy
CPT/HCPCS: 36415; 71045; 71046; 80048; 80053; 81001; 83605; 85025; 85027; 86308; 87040; 87449; 87636; 93005; 94640; 96361; 96365; 96366; 96367; 96368; 99285